=== PATIENT | male | born 1950 | race Caucasian/White ===

== ENCOUNTER 2024-02-06 09:54 | Observation (INO) ==
--- NOTE | 2024-02-06 10:09 | Emergency Department Note ---
Impression & Plan Aortic dissection, Chest pain, Hypercalcemia, History of aortic dissection ED Provider Note NAME: TONI GR AGE: 73 SEX: M : 1950 ARRIVES VIA: Ambulance INFORMANT: Patient, ED PROVIDER(S): Doug La DO CHIEF COMPLAINT: Chest pain HPI: The patient is a 73-year-old male who presented to the emergency department by ambulance for an evaluation of chest pain. The patient was walking up a step when he felt a pulling sensation on the left side of his chest. He has a history of aortic dissection with aortic valve replacement. The patient does take Coumadin. He did not take his morning medications. He called 911 and was brought to our emergency department for further evaluation. The patient denies having any difficulty breathing. He did fly from [place] recently for a family reunion that was going on today. He is never been in our facility before but he does come from the [facility]. He denies having any lower extremity swelling or pain. He denies having any difficulty breathing. He states the pain is somewhat worsened with movement. ROS: See above HPI for pertinent positives & negatives. A total of 10 systems reviewed and were otherwise negative. PAST MEDICAL HISTORY: See Below PAST SURGICAL HISTORY: See Below FAMILY HISTORY: See Below SOCIAL HISTORY: See Below HOME MEDICATIONS: See Below ALLERGIES: See Below VITALS: See Below PHYSICAL EXAMINATION: GENERAL: Patient is awake alert in no acute distress patient is resting comfortably and showing no signs of anxiety EYES: The conjunctivae are clear. The pupils are round and reactive. EARS, NOSE, MOUTH AND THROAT: The nose is without any evidence of any deformity. Mucous membranes are moist. Tongue is midline. NECK: The neck is nontender and supple. RESPIRATORY: Normal respiratory effort is noted there is no evidence of wheezing rhonchi or rales CARDIOVASCULAR: Regular rate and rhythm was noted to auscultation. Metallic click was noted to auscultation. GASTROINTESTINAL: The abdomen is soft. Abdomen is nontender. MUSCULOSKELETAL/EXTREMITIES: There is no evidence of gross deformity full range of motion is noted in the hips and shoulders. SKIN: There is no obvious evidence of any rash. Pulses are symmetric in both wrist. NEUROLOGIC: Patient is awake alert and oriented x3. Gait was steady. MEDICAL DECISION MAKING: The patient is a 73-year-old male who presented to the emergency department for an evaluation of chest pain. The patient described a sensation almost like a tearing or pulling sensation in his anterior chest. He has a remote history of thoracic aortic aneurysm repair in 2013. The patient is currently visiting and normally lives in [place]. His family called 911 and the patient came to our facility by ambulance. The patient was bradycardic. He does not take a beta- raul according to his med reconciliation. He does take Coumadin because of a valve replacement surgery because of the aortic surgery. I discussed patient's laboratory and radiographic studies with him. He was found to have an elevation in his calcium. He was also found to have an aortic dissection although it is unclear if this is a chronic finding. I discussed the patient's condition with the ICU as well as the cardiothoracic group at . They feel that these findings may be more related to a chronic finding from the surgery. I discussed his case with the [facility] hospitalist group here as well as our cardiology group ICU and vascular. The patient was placed on nicardipine drip. Blood pressure responded well. Triage Nursing notes reviewed. Prior medical records reviewed Vital Signs: reviewed and remarkable for bradycardia and retention. Differential diagnosis: Cardiac ischemia, aortic dissection, pulmonary embolism, pneumothorax, pneumonia, pericarditis, myocarditis, esophageal rupture, GERD, cholecystitis, pancreatitis, musculoskeletal, as well as other pathologies. ER treatment provided: See below Diagnostics interpreted by me: ECG: EKG was obtained in the emergency department. My interpretation is sinus bradycardia 55 bpm. There is no ectopy. There is no acute ST segment abnormalities noted. No previous tracing available. Cardiac Monitoring: An order was placed for continuous cardiac monitoring. The monitor shows a rate of 48 bpm with sinus bradycardia. Laboratory studies: As stated above and show below. Imaging studies: See below. Radiographic imaging was reviewed by myself Consultation(s): I discussed this case with Dr. Moore who is on-call for the ICU at . I discussed this case with Dr. Llamas who is on-call for CT surgery at . I discussed this case with Dr Edouard who is on for vascular surgery at [facility] I discussed the case with Karen who is on-call for the [facility] hospitalist group. They will evaluate the patient in the emergency department. I discussed this case with Dr. Blank who is on-call for the ICU at [facility]. I discussed this case with Dr Waite who is on-call for the [facility] allergy group. ED COURSE: Procedures: none Critical Care: I have personally spent greater than 55 minutes of critical care time in the direct management of this patient. This includes bedside care, interpretation of diagnostic studies, and testing, discussion with consultants, patient, and family members, and other required patient management activities. This 55 minutes is in excess of all separately billable procedures. Past Med/Surg History Problem List (Updated 02/06/24 @ 13:43 by Marilyn Ugalde PA-C) Urinary retention Abnormal renal function H/O mechanical aortic valve replacement History of aortic dissection Bradycardia Hypertensive emergency HTN (hypertension) Hypercalcemia (Acute) Chest pain (Acute) Aortic valve replaced Aortic dissection (Acute) Surgical History History of repair of ACL History of total knee replacement Family History (Updated 02/06/24 @ 13:25 by Marilyn Ugalde PA-C) Other Hypertension Social History Smoking Status: Former smoker Hx Alcohol Use: Yes Alcohol Intake Frequency: 2-4 x/Month Hx Substance Use: Yes Non-Prescribed Medications: Marijuana Preferred Language: Swazi Beliefs That Will Affect Care: Spiritual Feels Safe at Home: Yes Allergies Allergies Allergy/AdvReac Type Severity Reaction Status Date / Time Unable to Assess Allergy Unverified 02/06/24 11:48 Home Meds Home Medications Medication Instructions Recorded Confirmed amlodipine 5 mg tablet 5 mg PO QAM 02/06/24 02/06/24 ascorbic acid (vitamin C) 500 mg 500 mg PO DAILY 02/06/24 02/06/24 tablet (Vitamin C) aspirin 81 mg tablet,delayed 81 mg PO QPM 02/06/24 02/06/24 release benazepril 20 mg tablet 20 mg PO QPM 02/06/24 02/06/24 cholecalciferol (vitamin D3) 25 25 mcg PO DAILY 02/06/24 02/06/24 mcg (1,000 unit) tablet (Vitamin D3) cyanocobalamin (vitamin B-12) 500 500 mcg PO QPM 02/06/24 02/06/24 mcg tablet (Vitamin B-12) lysine 1,000 mg tablet 1,000 mg PO DAILY 02/06/24 02/06/24 magnesium 250 mg tablet 125 mg PO QPM 02/06/24 02/06/24 pantothenic acid (vit B5) 500 mg 500 mg PO QPM 02/06/24 02/06/24 tablet triamterene 37.5 1 tab PO QAM 02/06/24 02/06/24 mg-hydrochlorothiazide 25 mg tablet warfarin 5 mg tablet 2.5 mg PO BID 02/06/24 02/06/24 Results & Data (ED) Vital Signs Vital Signs - 24 hr 02/06/24 10:04 02/06/24 10:10 02/06/24 10:15 Temperature 36.5 C Temperature Source Oral Pulse Rate 53 L 54 L 48 L Pulse Rate [Apical] Pulse Rate from SpO2 Sensor Pulse Rhythm Regular Respiratory Rate 16 18 20 Respiratory Effort / Characteristics Non-Labored Respiratory Depth Normal Blood Pressure 205/92 H 181/90 H Blood Pressure [Right Arm] Blood Pressure Mean 129 120 Blood Pressure Mean [Right Arm] Pulse Oximetry 96 96 95 Oxygen Delivery Method Room Air Room Air Sepsis Recent Fever Within 48 Hours No Sepsis New/Unexplained Change in Mental Status N/A Sepsis Action Taken by Nursing No Action Required 02/06/24 10:54 02/06/24 11:00 02/06/24 11:04 Temperature Temperature Source Pulse Rate 49 L 46 L Pulse Rate [Apical] Pulse Rate from SpO2 Sensor 48 L 44 L Pulse Rhythm Respiratory Rate 17 16 Respiratory Effort / Characteristics Respiratory Depth Blood Pressure 166/75 H 174/75 H Blood Pressure [Right Arm] Blood Pressure Mean 105 124 Blood Pressure Mean [Right Arm] Pulse Oximetry 97 96 Oxygen Delivery Method Sepsis Recent Fever Within 48 Hours Sepsis New/Unexplained Change in Mental Status Sepsis Action Taken by Nursing 02/06/24 11:16 02/06/24 11:33 02/06/24 11:35 Temperature Temperature Source Pulse Rate 48 L 57 L Pulse Rate [Apical] Pulse Rate from SpO2 Sensor Pulse Rhythm Respiratory Rate Respiratory Effort / Characteristics Respiratory Depth Blood Pressure 154/70 H 148/67 H Blood Pressure [Right Arm] Blood Pressure Mean 99 94 Blood Pressure Mean [Right Arm] Pulse Oximetry Oxygen Delivery Method Sepsis Recent Fever Within 48 Hours Sepsis New/Unexplained Change in Mental Status Sepsis Action Taken by Nursing 02/06/24 11:36 02/06/24 11:54 02/06/24 12:22 Temperature Temperature Source Pulse Rate 58 L Pulse Rate [Apical] 50 L Pulse Rate from SpO2 Sensor Pulse Rhythm Respiratory Rate 18 Respiratory Effort / Characteristics Respiratory Depth Blood Pressure 157/78 H Blood Pressure [Right Arm] 134/60 123/68 Blood Pressure Mean 104 Blood Pressure Mean [Right Arm] 84 86 Pulse Oximetry Oxygen Delivery Method Sepsis Recent Fever Within 48 Hours Sepsis New/Unexplained Change in Mental Status Sepsis Action Taken by Nursing 02/06/24 12:36 02/06/24 12:53 Temperature Temperature Source Pulse Rate 61 Pulse Rate [Apical] 48 L Pulse Rate from SpO2 Sensor Pulse Rhythm Respiratory Rate 20 18 Respiratory Effort / Characteristics Non-Labored Respiratory Depth Normal Blood Pressure 137/66 Blood Pressure [Right Arm] 172/80 H Blood Pressure Mean 89 Blood Pressure Mean [Right Arm] 110 Pulse Oximetry 97 Oxygen Delivery Method Room Air Sepsis Recent Fever Within 48 Hours Sepsis New/Unexplained Change in Mental Status Sepsis Action Taken by Long-Term Medications Current Medication List: was personally reviewed by me Laboratory Data Attestation: I reviewed the patient's lab results. 02/06/24 10:13 02/06/24 10:13 Lab Results 02/06/24 02/06/24 02/06/24 Range/Units 10:11 10:13 10:19 WBC 4.32 L (4.8-10.8) K/ul RBC 4.96 (4.70-6.10) M/uL Hgb 15.0 (14.0-18.0) g/dl POC Hgb 15.3 (14.0-18.0) g/dl Hct 45.3 (42.0-52.0) % POC Hct 45 (42-52) % MCV 91.3 (80.0-100.0) fL MCH 30.2 (25.0-34.0) pg MCHC 33.1 (32.0-36.0) g/dL RDW Std Deviation 48.1 H (36.4-46.3) fL RDW Coeff of Ernie 14.3 (11.5-14.5) % Plt Count 192 (130-400) K/uL MPV 10.1 (9.4-12.4) fL Immature Gran % (Auto) 0.2 % Neut % (Auto) 54.2 % Lymph % (Auto) 30.1 % [place] % (Auto) 11.8 % Eos % (Auto) 3.0 % Baso % (Auto) 0.7 % Neut # (Auto) 2.34 (1.40-6.50) K/uL Lymph # (Auto) 1.30 (1.20-3.40) K/uL [place] # (Auto) 0.51 (0.11-0.59) K/uL Eos # (Auto) 0.13 (0.00-0.50) K/uL Baso # (Auto) 0.03 (0.00-0.20) K/uL Immature Gran # (Auto) 0.01 (0.01-0.20) K/uL PT 29.1 H (9.0-12.0) Seconds INR 3.0 H (0.9-1.1) APTT 35 H (21-31) Seconds PTT Ratio 1.3 POC Sodium 141 (135-144) mmol/L Sodium 139 (136-145) mmol/L POC Potassium 3.8 (3.3-5.0) mmol/L Potassium 3.9 (3.5-5.1) mmol/L POC Chloride 103 (101-112) mmol/L Chloride 104 (98-107) mmol/L Carbon Dioxide 31 (21-32) mmol/L POC Total CO2 28 (24-31) mmol/L Anion Gap 4 (3-11) POC Anion Gap 14.0 L (16-25) mmol/L POC BUN 23 H (7-18) mg/dl BUN 23 (6-23) mg/dl Creatinine 1.42 H (0.6-1.4) mg/dl POC Creatinine 1.5 H (0.6-1.3) mg/dl Est Cr Clr Drug Dosing 50.1 ml/min Est GFR ( Amer) 56.8 ml/min Est GFR (Non-Af Amer) 49.0 ml/min BUN/Creatinine Ratio 16.2 (10-20) Glucose 98 (70-99(Fasting)) mg/dl POC Glucose (other) 95 (70-99) mg/dl Calcium 12.2 H* (8.6-10.3) mg/dl POC Ioniz Calcium Grant 1.51 H (1.12-1.32) mmol/l Total Bilirubin 0.9 (0.2-1.0) mg/dl AST 21 (13-39) U/L ALT 15 (7-52) U/L Alkaline Phosphatase 93 (34-104) U/L Troponin I High Sens 13.5 (0-20) pg/ml Total Protein 7.7 (6.0-8.3) gm/dl Albumin 4.6 (3.4-5.0) gm/dl Globulin 3.1 (2.5-4.0) gm/dl Albumin/Globulin Ratio 1.5 (0.9-2) Lipase 13 (11-82) U/L Urine Color Yellow Urine Appearance Clear (Clear) Urine pH 6.5 (4.5-7.5) Ur Specific [place] 1.006 (1.000-1.030) Urine Protein Negative (Negative) Urine Glucose (UA) Negative (Negative) Urine Ketones Negative (Negative) Urine Blood Negative (Negative) Urine Nitrite Negative (Negative) Urine Bilirubin Negative (Negative) Urine Urobilinogen Negative (Negative) Ur Leukocyte Esterase Negative (Negative) 02/06/24 Range/Units 12:50 WBC (4.8-10.8) K/ul RBC (4.70-6.10) M/uL Hgb (14.0-18.0) g/dl POC Hgb (14.0-18.0) g/dl Hct (42.0-52.0) % POC Hct (42-52) % MCV (80.0-100.0) fL MCH (25.0-34.0) pg MCHC (32.0-36.0) g/dL RDW Std Deviation (36.4-46.3) fL RDW Coeff of Ernie (11.5-14.5) % Plt Count (130-400) K/uL MPV (9.4-12.4) fL Immature Gran % (Auto) % Neut % (Auto) % Lymph % (Auto) % [place] % (Auto) % Eos % (Auto) % Baso % (Auto) % Neut # (Auto) (1.40-6.50) K/uL Lymph # (Auto) (1.20-3.40) K/uL [place] # (Auto) (0.11-0.59) K/uL Eos # (Auto) (0.00-0.50) K/uL Baso # (Auto) (0.00-0.20) K/uL Immature Gran # (Auto) (0.01-0.20) K/uL PT (9.0-12.0) Seconds INR (0.9-1.1) APTT (21-31) Seconds PTT Ratio POC Sodium (135-144) mmol/L Sodium (136-145) mmol/L POC Potassium (3.3-5.0) mmol/L Potassium (3.5-5.1) mmol/L POC Chloride (101-112) mmol/L Chloride (98-107) mmol/L Carbon Dioxide (21-32) mmol/L POC Total CO2 (24-31) mmol/L Anion Gap (3-11) POC Anion Gap (16-25) mmol/L POC BUN (7-18) mg/dl BUN (6-23) mg/dl Creatinine (0.6-1.4) mg/dl POC Creatinine (0.6-1.3) mg/dl Est Cr Clr Drug Dosing ml/min Est GFR ( Amer) ml/min Est GFR (Non-Af Amer) ml/min BUN/Creatinine Ratio (10-20) Glucose (70-99(Fasting)) mg/dl POC Glucose (other) (70-99) mg/dl Calcium (8.6-10.3) mg/dl POC Ioniz Calcium Grant (1.12-1.32) mmol/l Total Bilirubin (0.2-1.0) mg/dl AST (13-39) U/L ALT (7-52) U/L Alkaline Phosphatase (34-104) U/L Troponin I High Sens 12.3 (0-20) pg/ml Total Protein (6.0-8.3) gm/dl Albumin (3.4-5.0) gm/dl Globulin (2.5-4.0) gm/dl Albumin/Globulin Ratio (0.9-2) Lipase (11-82) U/L Urine Color Urine Appearance (Clear) Urine pH (4.5-7.5) Ur Specific [place] (1.000-1.030) Urine Protein (Negative) Urine Glucose (UA) (Negative) Urine Ketones (Negative) Urine Blood (Negative) Urine Nitrite (Negative) Urine Bilirubin (Negative) Urine Urobilinogen (Negative) Ur Leukocyte Esterase (Negative) Administered Medications Nicardipine HCl 25 mg/ Sodium (Chloride) 250 mls @ 25 mls/hr IV .Q10H SHANKAR; Protocol Stop: 03/07/24 11:14 Last Titration: 02/06/24 12:53 Dose: 2.5 mg/hr, 25 mls/hr Documented By: MMFederica Titration: 02/06/24 11:56 Dose: 2.5 mg/hr, 25 mls/hr Documented By: Admin: 02/06/24 11:16 Dose: 5 mg/hr, 50 mls/hr Documented By: MARIXA Co-signed By: SHB Discontinued Medications Ioversol (Optiray 320 125ml) 117 ml IV ONCE ONE Stop: 02/06/24 10:31 Last Admin: 02/06/24 10:30 Dose: 117 ml Documented By: TASHA Miscellaneous (Stat Iv Infusion Titration Per Protocol) 1 each N/A NOW STA Stop: 02/06/24 11:03 Last Admin: 02/06/24 13:20 Dose: Not Given Documented By: MARIXA Imaging Data Attestation: I personally reviewed and interpreted this imaging study as follows: My Impression: 1 view chest x-ray was obtained in the emergency department. My interpretation is no free air or definite infiltrate, final report below. CT of the chest abdomen pelvis was obtained. My interpretation is no free air or signs of bowel obstruction, there was signs of aortic dissection noted on the abdominal CT. Final reports are below. Radiologist's Impression: Abdomen/Pelvis CT 02/06/24 09:[address] WITH IV CONTRAST CT DOSE: HISTORY: Generalized abdominal pain. History of an aortic dissection. TECHNIQUE: Multiaxial CT images of the abdomen and pelvis were performed following the use of intravenous contrast. A dose lowering technique was utilized adhering to the principles of ALARA. COMPARISON STUDY: None. FINDINGS: There is an age-indeterminate intramural hematoma within the distal descending thoracic aorta. There is also an age-indeterminate dissection within the abdominal aorta which extends into the bilateral common iliac arteries and right external iliac artery. Both the true and false lumens are opacified. No significant stenosis or occlusion within the aorta or iliac arteries. The bilateral renal arteries and major mesenteric arteries appear patent. No retroperitoneal hematoma. The heart is mildly enlarged. The main portal vein is patent. The lung bases will be reported on the same day chest CTA. No pneumoperitoneum. No pneumatosis. No acute fractures. Partially visualized poststernotomy changes. There is a mild superior endplate compression fracture at L1. This is likely chronic. There are few small gallstones. No gallbladder wall thickening. The liver, spleen, and adrenal glands unremarkable. No hydronephrosis. There is a severely atrophic right kidney. There is a 6 mm hypodense lesion within the uncinate process of the pancreas on image 148. No retroperitoneal lymphadenopathy. No pelvic lymphadenopathy or pelvic free fluid. Mild bladder wall thickening is likely due to chronic outlet obstruction from the enlarged prostate gland. No bowel wall thickening or obstruction. Colonic diverticulosis. No evidence for acute diverticulitis. Moderate fecal retention. Normal appendix. IMPRESSION: 1. There is an intramural hematoma within the visualized ascending thoracic aorta and a dissection within the abdominal aorta and iliac arteries as described above. No significant stenosis, occlusion, or aortic rupture. These are technically age-indeterminate but likely chronic. 2. Severely atrophic right kidney. 3. No bowel wall thickening or obstruction. 4. Colonic diverticulosis. No evidence for acute diverticulitis. 5. Cholelithiasis. No gallbladder wall thickening. 6. A 6 mm hypodense lesion within the uncinate process of the pancreas. This favors a cystic neoplasm such as a side branch intraductal papillary mucinous neoplasm or serous cystadenoma. One year CT or MRI follow-up can be performed to ensure stability. 7. Additional findings as described above. ACT 112: Negative or not required by law. Electronically signed by: Eric Loja M.D. 02/06/2024 10:56 AM Chest X-Ray 02/06/24 09:58 XR chest 1V portable HISTORY: 73 years-old Male abd pain acute chest pain COMPARISON: None TECHNIQUE: AP view of the chest FINDINGS: Cardiac silhouette is enlarged. Median sternotomy with cardiac valvular prosthesis. Atherosclerosis of the aorta. Mild pulmonary vascular congestion. No pneumothorax, pleural effusion or airspace consolidation. The bones appear intact. IMPRESSION: Cardiomegaly with pulmonary vascular congestion. ACT 112: Negative or not required by law. The above report was generated using voice recognition software. It may contain grammatical, syntax or spelling errors. Electronically signed by: Ever Hobbs M.D. 02/06/2024 10:33 AM Chest CTA 02/06/24 10:07 CT angio chest dissec wo/w con HISTORY: 73 years-old Male hx of dissedtion, CP acute chest pain COMPARISON: CT abdomen and pelvis of same day TECHNIQUE: CTA chest was obtained with and without IV contrast. A dose lowering technique was used consistent with the principals of MARTIN. All measurements were obtained according to CT criteria. 3-D coronal and sagittal MIPS were obtained and submitted for review. FINDINGS: CTA: Cardiomegaly without pericardial effusion. Median sternotomy with prosthetic aortic valve. Extensive coronary artery calcifications. Postoperative changes of the ascending thoracic aorta with dilation of the anterior arch measuring up to 4.3 cm transversely. No acute intrathoracic dissection. Chronic- appearing intradural hematoma of the distal descending thoracic aorta. No pulmonary emboli identified. Partially imaged abdominal aortic dissection with dissection flap extending into the left renal artery. There is decreased flow within the posterior lumen. There is fenestration of the dissection flap on image [address] CHEST: Unremarkable thyroid. No lymphadenopathy. No pneumothorax, pleural effusion or overt pulmonary edema. Mild biapical pleural-parenchymal scarring. Mild left basilar atelectasis. Lobular 3.5 x 2.4 cm mass in the left lower lobe on image 111 series 7 demonstrates coarse central calcifications. No additional pulmonary lesions identified. Central airways are patent. No acute fracture. Atrophic right kidney with decreased perfusion and narrowing of the mid right renal artery. No acute fracture. IMPRESSION: 1. Cardiomegaly with prior median sternotomy, prosthetic aortic valve with postoperative changes of the ascending thoracic aorta. 2. No acute thoracic aortic dissection. 3. Chronic-appearing intramural hematoma of the descending thoracic aorta with likely chronic abdominal aortic dissection, partially imaged. 4. 3.5 cm partially calcified mass of the left lower lobe. Follow-up with pulmonology recommended. This may be amenable to bronchoscopic tissue sampling. ACT 112: Positive. There are findings on this exam that require communication between the performing entity and the patient following Patient Test Result Information Act ([place] Act 112) guidelines. The above report was generated using voice recognition software. It may contain grammatical, syntax or spelling errors. Electronically signed by: Ever Hobbs M.D. 02/06/2024 11:41 AM Discharge Plan Visit Data Chief Complaint: Abdominal Pain Stated Complaint: ILLNESS ED Provider: Doug La Discharge Problem: Aortic dissection, Chest pain, Hypercalcemia, History of aortic dissection Patient Disposition: Being Evaluated by Hospitalist Forms Stand Alone Forms: My [facility] Prescriptions Prescriptions: No Action pantothenic acid (vit B5) 500 mg Tablet 500 mg PO QPM lysine [L-Lysine] 1,000 mg Tablet 1,000 mg PO DAILY amlodipine 5 mg tablet 5 mg PO QAM aspirin 81 mg Tablet,Delayed Release (Dr/Ec) 81 mg PO QPM cyanocobalamin (vitamin B-12) [Vitamin B-12] 500 mcg Tablet 500 mcg PO QPM ascorbic acid (vitamin C) [Vitamin C] 500 mg Tablet 500 mg PO DAILY warfarin 5 mg tablet 2.5 mg PO BID benazepril 20 mg tablet 20 mg PO QPM magnesium 250 mg Tablet 125 mg PO QPM cholecalciferol (vitamin D3) [Vitamin D3] 25 mcg (1,000 unit) Tablet 25 mcg PO DAILY triamterene-hydrochlorothiazid 37.5-25 mg Tablet 1 tab PO QAM Referrals Referrals: PCP,NO [Physician] - Discharge Problem: Aortic dissection Qualifiers: Aortic location: thoracoabdominal aorta Qualified Code(s): I71.03 - Dissection of thoracoabdominal aorta Chest pain Qualifiers: Chest pain type: unspecified Qualified Code(s): R07.9 - Chest pain, unspecified
[2024-02-06] MEDS: OPTIRAY 320 125ml IV ONE (10:30)
[2024-02-06 10:32] LABS: Appearance Urine Clear (Clear); Bilirubin Urine Negative (Negative); Blood Urine Negative (Negative); Color Urine Yellow; Glucose Urine UA Negative (Negative); Ketones Urine Negative (Negative); Leukocyte Esterase Urine Negative (Negative); Nitrite Urine Negative (Negative); Protein Urine Negative (Negative); Specific Gravity Urine 1.006 (1.000-1.030); Urobilinogen Urine Negative (Negative); pH Urine 6.5 (4.5-7.5)
[2024-02-06 10:32] LABS: iSTAT Creatinine 1.5 mg/dl (0.6-1.3); iSTAT Hemoglobin 15.3 g/dl (14.0-18.0); iSTAT Ionized Calcium 1.51 mmol/l (1.12-1.32); iSTAT Potassium 3.8 mmol/L (3.3-5.0)
--- NOTE | 2024-02-06 10:34 | XRay Report ---
XR chest 1V portable HISTORY: 73 years-old Male abd pain acute chest pain COMPARISON: None TECHNIQUE: AP view of the chest FINDINGS: Cardiac silhouette is enlarged. Median sternotomy with cardiac valvular prosthesis. Atherosclerosis o f the aorta. Mild pulmonary vascular congestion. No pneumothorax, pleural effusion or airspace consol idation. The bones appear intact. IMPRESSION: Cardiomegaly with pulmonary vascular congestion. ACT 112: Negative or not required by law. The above report was generated using voice recognition software. It may contain grammatical, syntax o r spelling errors. Electronically signed by: Ever Hobbs M.D. 02/06/2024 10:33 AM
[2024-02-06 10:39] LABS: Basophils # (auto) 0.03 K/uL (0.00-0.20); Basophils % (auto) 0.7 %; Eosinophils # (auto) 0.13 K/uL (0.00-0.50); Hematocrit (blood only) 45.3 % (42.0-52.0); Immature Granulocytes # (auto) 0.01 K/uL (0.01-0.20); Immature Granulocytes % (auto) 0.2 %; Lymphocytes % (auto) 30.1 %; Mean Corpuscular Hemoglobin 30.2 pg (25.0-34.0); Mean Corpuscular Hgb Conc 33.1 g/dL (32.0-36.0); Mean Corpuscular Volume 91.3 fL (80.0-100.0); Mean Platelet Volume 10.1 fL (9.4-12.4); Monocytes # (auto) 0.51 K/uL (0.11-0.59); Monocytes % (auto) 11.8 %; Neutrophils # (auto) 2.34 K/uL (1.40-6.50); Neutrophils % (auto) 54.2 %; Platelet Count 192 K/uL (130-400); RDW Coefficient of Variation 14.3 % (11.5-14.5); RDW Standard Deviation 48.1 fL (36.4-46.3); Red Blood Count 4.96 M/uL (4.70-6.10); White Blood Count 4.32 K/ul (4.8-10.8)
--- NOTE | 2024-02-06 10:58 | CT Scan Report ---
ABDOMEN AND PELVIS CT WITH IV CONTRAST CT DOSE: HISTORY: Generalized abdominal pain. History of an aortic dissection. TECHNIQUE: Multiaxial CT images of the abdomen and pelvis were performed following the use of intrave nous contrast. A dose lowering technique was utilized adhering to the principles of ALARA. COMPARISON STUDY: None. FINDINGS: There is an age-indeterminate intramural hematoma within the distal descending thoracic aor ta. There is also an age-indeterminate dissection within the abdominal aorta which extends into the b ilateral common iliac arteries and right external iliac artery. Both the true and false lumens are op acified. No significant stenosis or occlusion within the aorta or iliac arteries. The bilateral renal arteries and major mesenteric arteries appear patent. No retroperitoneal hematoma. The heart is mild ly enlarged. The main portal vein is patent. The lung bases will be reported on the same day chest CTA. No pneumoperitoneum. No pneumatosis. No ac [place] fractures. Partially visualized poststernotomy changes. There is a mild superior endplate jacqueline julius fracture at L1. This is likely chronic. There are few small gallstones. No gallbladder wall thic [place]. The liver, spleen, and adrenal glands unremarkable. No hydronephrosis. There is a severely at rophic right kidney. There is a 6 mm hypodense lesion within the uncinate process of the pancreas on image 148. No retroperitoneal lymphadenopathy. No pelvic lymphadenopathy or pelvic free fluid. Mild b ladder wall thickening is likely due to chronic outlet obstruction from the enlarged prostate gland. No bowel wall thickening or obstruction. Colonic diverticulosis. No evidence for acute diverticulitis . Moderate fecal retention. Normal appendix. IMPRESSION: 1. There is an intramural hematoma within the visualized ascending thoracic aorta and a dissection wi thin the abdominal aorta and iliac arteries as described above. No significant stenosis, occlusion, o r aortic rupture. These are technically age-indeterminate but likely chronic. 2. Severely atrophic right kidney. 3. No bowel wall thickening or obstruction. 4. Colonic diverticulosis. No evidence for acute diverticulitis. 5. Cholelithiasis. No gallbladder wall thickening. 6. A 6 mm hypodense lesion within the uncinate process of the pancreas. This favors a cystic neoplasm such as a side branch intraductal papillary mucinous neoplasm or serous cystadenoma. One year CT or MRI follow-up can be performed to ensure stability. 7. Additional findings as described above. ACT 112: Negative or not required by law. Electronically signed by: Eric Loja M.D. 02/06/2024 10:56 AM
[2024-02-06 11:15] LABS: Partial Thromboplastin Ratio 1.3; Partial Thromboplastin Time 35 Seconds (21-31); Prothrombin Time 29.1 Seconds (9.0-12.0)
[2024-02-06] MEDS: niCARdipine 25 MG in SODIUM CHLORIDE 0.9% 240 ML IV SCH (11:16)
[2024-02-06 11:19] LABS: Albumin Globulin Ratio 1.5 (0.9-2); Albumin Level 4.6 gm/dl (3.4-5.0); BUN Creatinine Ratio 16.2 (10-20); Bilirubin,Total 0.9 mg/dl (0.2-1.0); Calcium 12.2 mg/dl (8.6-10.3); Creatinine Clr Calc Pharmacy 50.1 ml/min; Est GFR (African American) 56.8 ml/min; Globulin 3.1 gm/dl (2.5-4.0); Potassium 3.9 mmol/L (3.5-5.1); Total Protein 7.7 gm/dl (6.0-8.3); Troponin I High Sensitivity 13.5 pg/ml (0-20)
--- NOTE | 2024-02-06 11:43 | CT Scan Report ---
CT angio chest dissec wo/w con HISTORY: 73 years-old Male hx of dissedtion, CP acute chest pain COMPARISON: CT abdomen and pelvis of same day TECHNIQUE: CTA chest was obtained with and without IV contrast. A dose lowering technique was used co nsistent with the principals claudia SALAZAR. All measurements were obtained according to CT criteria. 3-D c oronal and sagittal MIPS were obtained and submitted for review. FINDINGS: CTA: Cardiomegaly without pericardial effusion. Median sternotomy with prosthetic aortic valve. Exten sive coronary artery calcifications. Postoperative changes of the ascending thoracic aorta with dilat ion of the anterior arch measuring up to 4.3 cm transversely. No acute intrathoracic dissection. 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 No pulmonary emboli identi fied. Partially imaged abdominal aortic dissection with dissection flap extending into the left renal arter y. There is decreased flow within the posterior lumen. There is fenestration of the dissection flap o n image [address] CHEST: Unremarkable thyroid. No lymphadenopathy. No pneumothorax, pleural effusion or overt pulmon romel edema. Mild biapical pleural-parenchymal scarring. Mild left basilar atelectasis. Lobular 3.5 x 2 .4 cm mass in the left lower lobe on image 111 series 7 demonstrates coarse central calcifications. N o additional pulmonary lesions identified. Central airways are patent. No acute fracture. Atrophic ri ght kidney with decreased perfusion and narrowing of the mid right renal artery. No acute fracture. IMPRESSION: 1. Cardiomegaly with prior median sternotomy, prosthetic aortic valve with postoperative changes of t he ascending thoracic aorta. 2. No acute thoracic aortic dissection. 3. Chronic-appearing intramural hematoma of the descending thoracic aorta with likely chronic abdomin al aortic dissection, partially imaged. 4. 3.5 cm partially calcified mass of the left lower lobe. Follow-up with pulmonology recommended. Th is may be amenable to bronchoscopic tissue sampling. ACT 112: Positive. There are findings on this exam that require communication between the performing entity and the patient following Patient Test Result Information Act ([place] Act 112) guidelines. The above report was generated using voice recognition software. It may contain grammatical, syntax o r spelling errors. Electronically signed by: Ever Hobbs M.D. 02/06/2024 11:41 AM
--- NOTE | 2024-02-06 12:30 | History & Physical Report ---
Date of Service February 06, 2024 Assessment & Plan (1) Chest pain: (2) Hypertensive emergency: (3) Bradycardia: (4) History of aortic dissection: (5) H/O mechanical aortic valve replacement: Plan: Patient is 73 year old male with PMH aortic dissection, mechanical aortic valve, anticoagulated on warfarin with goal INR: 2.5-3.5, HTN, chronic urinary retention presented to ER with c/o chest pain today described as popping sensation. Today in ER noted to be hypertensive with BP 205/92 and pulse: 53. He was started on nicardipine drip with improvement of BPs and reported improvement of chest discomfort. Noted bradycardia in ER 40's-50's Troponin negative x 2 CTA chest: 1. Cardiomegaly with prior median sternotomy, prosthetic aortic valve with postoperative changes of the ascending thoracic aorta. 2. No acute thoracic aortic dissection. 3. Chronic-appearing intramural hematoma of the descending thoracic aorta with likely chronic abdominal aortic dissection, partially imaged. 4. 3.5 cm partially calcified mass of the left lower lobe. Follow-up with pulmonology recommended. This may be amenable to bronchoscopic tissue sampling. Chest pain may be from hypertensive emergency. R/O ACS, dissection. Appear chronic aortic dissection and hematoma on CT at this time. 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 Dr Waite Will hold home benazepril, triamterene-hydrochlorothiazide, amlodipine currently as on nicardipine drip INR: 3.0 Plan to continue warfarin CBC, BMP, INR in am (6) Abnormal renal function: Plan: Suspect underlying CKD given his history. Unknown baseline renal functions ?GREGORY CT abd/pelvis: Severely atrophic right kidney. BUN: 23, Cr: 1.4 (7) Hypercalcemia: Plan: Ca: 12 Repeat BMP now Calcitonin pending May need to consider nephrology consult (8) Urinary retention: Plan: Neurogenic bladder Self caths at home Chapman cath for now UA unremarkable (9) Abnormal CT scan: Plan: CT Abd/Pelvis:A 6 mm hypodense lesion within the uncinate process of the pancreas. This favors a cystic neoplasm such as a side branch intraductal papillary mucinous neoplasm or serous cystadenoma. Will need outpatient repeat imaging to monitor for stability CTA Chest: 3.5 cm partially calcified mass of the left lower lobe. Will require further follow up, likely with pulmonology DVT Prophylaxis On warfarin with therapeutic INR currently Full Code as per discussion with pt Follows with Dr Katiana Martines in [place], [place] for routine care Pt was seen and care coordinated with Dr Badillo. See addendum I spent a total of 75 minutes reviewing notes, outpatient records, labs, medication, coordinating, documenting and providing care for this patient excluding time spent in the performance of separately billed services. History of Present Illness Chief Complaint: Chest pain Primary Care Provider: AUDRA WILLAMS Patient is 73 year old male with PMH aortic dissection, mechanical aortic valve, anticoagulated on warfarin with goal INR: 2.5-3.5, HTN, chronic urinary retention presented to ER with c/o chest pain. Patient reports lives in [place] and flew to [place] and is here visiting family. Patient states this morning took a large step up and felt "pop" like sensation to left chest. States currently having some left chest pain described as dull but pain is not as strong as when he first arrived to the ER. States when takes deep breath left lateral chest feels tight sensation which he states feels like a pulled muscle. He does report a similar "popping sensation" in his chest in past that occurred approximately 8 hours prior to his aortic dissection in 07/13/2013. He denies any SOB, diaphoresis, dizziness, syncope, chest pain. Did not take his medications this morning. Patient reports has been told he has bradycardia in past. States in past had dizziness that he thought was secondary to dehydration and he since has been making sure to stay well hydrated and has not had dizziness symptoms. Reports home BP checks have been BP: 121/71, P 51 on 01/24/24 and on 01/26/24 BP: 118/74, P: 81. Reports some chronic ankle swelling and uses compression socks. Stung by yellow jackets yesterday. He reports that his throat felt a little tight and he took 6 tabs of OTC Benadryl yesterday with relief. Reports chronic constipation and uses Metamucil with relief. Aortic dissection and aortic valve replacement by Dr Zachery Lerma at [facility] in [facility]. States during that hospitalization had some kidney concerns but he is unsure of baseline kidney functions. States also has chronic numbness right buttock and chronic urinary retention and self-caths multiple times daily. Denies fever/chills, diaphoresis, N/V/D, TROY, syncope, vision changes, neck pain, orthopnea, palpitations, cough, sore throat, rhinorrhea, abdominal pain, paresthesias, weakness, rashes, hematuria, dysuria. Today in ER noted to be hypertensive with BP 205/92 and pulse: 53. He was started on nicardipine drip Allergies Allergy/AdvReac Type Severity Reaction Status Date / Time Unable to Assess Allergy Unverified 02/06/24 11:48 Home Medications Medication Instructions Recorded Confirmed Type amlodipine 5 mg tablet 5 mg PO QAM 02/06/24 02/06/24 History ascorbic acid (vitamin C) 500 mg 500 mg PO DAILY 02/06/24 02/06/24 History tablet (Vitamin C) aspirin 81 mg tablet,delayed 81 mg PO QPM 02/06/24 02/06/24 History release benazepril 20 mg tablet 20 mg PO QPM 02/06/24 02/06/24 History cholecalciferol (vitamin D3) 25 25 mcg PO DAILY 02/06/24 02/06/24 History mcg (1,000 unit) tablet (Vitamin D3) cyanocobalamin (vitamin B-12) 500 500 mcg PO QPM 02/06/24 02/06/24 History mcg tablet (Vitamin B-12) lysine 1,000 mg tablet 1,000 mg PO DAILY 02/06/24 02/06/24 History magnesium 250 mg tablet 125 mg PO QPM 02/06/24 02/06/24 History pantothenic acid (vit B5) 500 mg 500 mg PO QPM 02/06/24 02/06/24 History tablet triamterene 37.5 1 tab PO QAM 02/06/24 02/06/24 History mg-hydrochlorothiazide 25 mg tablet warfarin 5 mg tablet 2.5 mg PO BID 02/06/24 02/06/24 History Past Med/Surg History Problem List (Updated 02/06/24 @ 13:48 by Marilyn Ugalde PA-C) Abnormal CT scan Urinary retention Abnormal renal function H/O mechanical aortic valve replacement History of aortic dissection Bradycardia Hypertensive emergency HTN (hypertension) Hypercalcemia (Acute) Chest pain (Acute) Aortic valve replaced Aortic dissection (Acute) Surgical History History of repair of ACL History of total knee replacement Family History (Updated 02/06/24 @ 13:25 by Marilyn Ugalde PA-C) Other Hypertension Social History Smoking Status: Former smoker Hx Alcohol Use: Yes Alcohol Intake Frequency: 2-4 x/Month Hx Substance Use: Yes Non-Prescribed Medications: Marijuana Preferred Language: Turkish Beliefs That Will Affect Care: Spiritual Feels Safe at Home: Yes Review of Systems Review of Systems: All systems reviewed & are unremarkable except as noted in HPI & below Physical Exam Physical Exam: PE per Dr Badillo Results & Data Results & Data Vital Signs (Past 12 Hours) Vital Signs Temp Pulse Pulse Resp BP BP Pulse Ox 02/06/24 12:22 50 L 123/68 02/06/24 11:54 134/60 02/06/24 11:36 58 L 18 157/78 H 02/06/24 11:35 57 L 02/06/24 11:33 148/67 H 02/06/24 11:16 48 L 154/70 H 02/06/24 11:04 174/75 H 02/06/24 11:00 46 L 16 166/75 H 96 02/06/24 10:54 49 L 17 97 02/06/24 10:15 48 L 20 181/90 H 95 02/06/24 10:10 54 L 18 96 02/06/24 10:04 36.5 C 53 L 16 205/92 H 96 O2 Del Method 02/06/24 12:22 02/06/24 11:54 02/06/24 11:36 02/06/24 11:35 02/06/24 11:33 02/06/24 11:16 02/06/24 11:04 02/06/24 11:00 02/06/24 10:54 02/06/24 10:15 02/06/24 10:10 Room Air 02/06/24 10:04 Room Air Laboratory Results Short CBC 02/06/24 Range/Units 10:13 WBC 4.32 L (4.8-10.8) K/ul Hgb 15.0 (14.0-18.0) g/dl Hct 45.3 (42.0-52.0) % Plt Count 192 (130-400) K/uL BMP 02/06/24 10:13 Sodium 139 Potassium 3.9 Chloride 104 Carbon Dioxide 31 BUN 23 Creatinine 1.42 H Glucose 98 Calcium 12.2 H* Liver Function 02/06/24 Range/Units 10:13 Total Bilirubin 0.9 (0.2-1.0) mg/dl AST 21 (13-39) U/L ALT 15 (7-52) U/L Alkaline Phosphatase 93 (34-104) U/L Albumin 4.6 (3.4-5.0) gm/dl Urine 02/06/24 Range/Units 10:11 Urine Color Yellow Urine Appearance Clear (Clear) Urine pH 6.5 (4.5-7.5) Ur Specific [place] 1.006 (1.000-1.030) Urine Protein Negative (Negative) Urine Glucose (UA) Negative (Negative) Diagnostic Findings Abdomen/Pelvis CT 02/06/24 09:[address] WITH IV CONTRAST CT DOSE: HISTORY: Generalized abdominal pain. History of an aortic dissection. TECHNIQUE: Multiaxial CT images of the abdomen and pelvis were performed following the use of intravenous contrast. A dose lowering technique was utilized adhering to the principles of ALARA. COMPARISON STUDY: None. FINDINGS: There is an age-indeterminate intramural hematoma within the distal descending thoracic aorta. There is also an age-indeterminate dissection within the abdominal aorta which extends into the bilateral common iliac arteries and right external iliac artery. Both the true and false lumens are opacified. No significant stenosis or occlusion within the aorta or iliac arteries. The bilateral renal arteries and major mesenteric arteries appear patent. No retroperitoneal hematoma. The heart is mildly enlarged. The main portal vein is patent. The lung bases will be reported on the same day chest CTA. No pneumoperitoneum. No pneumatosis. No acute fractures. Partially visualized poststernotomy changes. There is a mild superior endplate compression fracture at L1. This is likely chronic. There are few small gallstones. No gallbladder wall thickening. The liver, spleen, and adrenal glands unremarkable. No hydronephrosis. There is a severely atrophic right kidney. There is a 6 mm hypodense lesion within the uncinate process of the pancreas on image 148. No retroperitoneal lymphadenopathy. No pelvic lymphadenopathy or pelvic free fluid. Mild bladder wall thickening is likely due to chronic outlet obstruction from the enlarged prostate gland. No bowel wall thickening or obstruction. Colonic diverticulosis. No evidence for acute diverticulitis. Moderate fecal retention. Normal appendix. IMPRESSION: 1. There is an intramural hematoma within the visualized ascending thoracic aorta and a dissection within the abdominal aorta and iliac arteries as described above. No significant stenosis, occlusion, or aortic rupture. These a re technically age-indeterminate but likely chronic. 2. Severely atrophic right kidney. 3. No bowel wall thickening or obstruction. 4. Colonic diverticulosis. No evidence for acute diverticulitis. 5. Cholelithiasis. No gallbladder wall thickening. 6. A 6 mm hypodense lesion within the uncinate process of the pancreas. This favors a cystic neoplasm such as a side branch intraductal papillary mucinous neoplasm or serous cystadenoma. One year CT or MRI follow-up can be performed to ensure stability. 7. Additional findings as described above. ACT 112: Negative or not required by law. Electronically signed by: Eric Loja M.D. 02/06/2024 10:56 AM Chest X-Ray 02/06/24 09:58 XR chest 1V portable HISTORY: 73 years-old Male abd pain acute chest pain COMPARISON: None TECHNIQUE: AP view of the chest FINDINGS: Cardiac silhouette is enlarged. Median sternotomy with cardiac valvular prosthesis. Atherosclerosis of the aorta. Mild pulmonary vascular congestion. No pneumothorax, pleural effusion or airspace consolidation. The bones appear intact. IMPRESSION: Cardiomegaly with pulmonary vascular congestion. ACT 112: Negative or not required by law. The above report was generated using voice recognition software. It may contain grammatical, syntax or spelling errors. Electronically signed by: Ever Hobbs M.D. 02/06/2024 10:33 AM Chest CTA 02/06/24 10:07 CT angio chest dissec wo/w con HISTORY: 73 years-old Male hx of dissedtion, CP acute chest pain COMPARISON: CT abdomen and pelvis of same day TECHNIQUE: CTA chest was obtained with and without IV contrast. A dose lowering technique was used consistent with the principals of MARTIN. All measurements were obtained according to CT criteria. 3-D coronal and sagittal MIPS were obtained and submitted for review. FINDINGS: CTA: Cardiomegaly without pericardial effusion. Median sternotomy with prosthetic aortic valve. Extensive coronary artery calcifications. Postoperative changes of the ascending thoracic aorta with dilation of the anterior arch measuring up to 4.3 cm transversely. No acute intrathoracic dissection. Chronic- appearing intradural hematoma of the distal descending thoracic aorta. No pulmonary emboli identified. Partially imaged abdominal aortic dissection with dissection flap extending into the left renal artery. There is decreased flow within the posterior lumen. There is fenestration of the dissection flap on image [address] CHEST: Unremarkable thyroid. No lymphadenopathy. No pneumothorax, pleural effusion or overt pulmonary edema. Mild biapical pleural-parenchymal scarring. Mild left basilar atelectasis. Lobular 3.5 x 2.4 cm mass in the left lower lobe on image 111 series 7 demonstrates coarse central calcifications. No additional pulmonary lesions identified. Central airways are patent. No acute fracture. Atrophic right kidney with decreased perfusion and narrowing of the mid right renal artery. No acute fracture. IMPRESSION: 1. Cardiomegaly with prior median sternotomy, prosthetic aortic valve with postoperative changes of the ascending thoracic aorta. 2. No acute thoracic aortic dissection. 3. Chronic-appearing intramural hematoma of the descending thoracic aorta with likely chronic abdominal aortic dissection, partially imaged. 4. 3.5 cm partially calcified mass of the left lower lobe. Follow-up with pulmonology recommended. This may be amenable to bronchoscopic tissue sampling. ACT 112: Positive. There are findings on this exam that require communication between the performing entity and the patient following Patient Test Result Information Act ([place] Act 112) guidelines. The above report was generated using voice recognition software. It may contain grammatical, syntax or spelling errors. Electronically signed by: Ever Hobbs M.D. 02/06/2024 11:41 AM Supervising Physician Co-Signing Physician Notes I have seen and discussed the case with the collaborating advanced practitioner. I agree with the above H&P. I have reviewed and confirmed the patients medical history, the findings on physical examination, and the patients diagnosis and treatment plan with [employer] ALCAZAR and agree with the information documented. In short, Mr. Humphrey is a 73 year old male with history of aortic dissection s/p repair and mechanical valve repair in 2012 on coumadin and hypertension who is admitted to ICU for hypertensive emergency and chest pain. Patient imaging revealed chronic aortic dissection and stable hematoma. Case reviewed by Geri who declined transfer. Case reviewed by Dr. Edouard who confirms seemingly stable chronic changes. Patient with pressures in 200s, did not take medications this am. Reports dull left sided chest pressure, nonreproducible on exam. 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 Patient states pain set in this am after a misstep resulting in a "pop" not dissimilar to his dissection Patient also remarks being stung by multiple wasps/yellow jackets and ingesting 150mg benadryl yes Labs with hypercalcemia to 12, normal trop EKG with bradycardia 40-50s not on BB iso valve repair BP initially in 200s prompting nicardipine drip initiation ICU and cardiology consulted in ED given concern for deterioration with complex medical history GENERAL APPEARANCE: AxOx4, generally well-appearing M, no acute distress. HEENT: NC, AT. MMM. EOMI, clear conjunctiva, oropharynx clear. NECK: Supple without lymphadenopathy. No stiffness or restricted ROM. HEART: VIRGIE+, mechanical click present LUNGS: CTAB, moving air well. No crackles or wheezes are heard. ABDOMEN: Soft, nontender, nondistended with good bowel sounds heard. BACK: No CVAT, no obvious deformity. EXTREMITIES: Without cyanosis, clubbing or edema. NEUROLOGICAL: Grossly nonfocal. Alert and oriented, moving all 4 extremities. CN not formally tested but appear grossly intact. Observed to ambulate with normal gait. Skin: Warm and dry without any rash. #Hypertensive Emergency #Chest pain #Chronic aortic dissection with hematoma Declined transfer, started on nicardipine Admit to ICU Continue nicardipine Repeat troponin x 3 Hold home regimen, resume as appropriate #Sinus bradycardia, borderline 1st degree iso mechanical valve #Aortic valve replacement on chronic anticoagulation Continue warfarin Avoid av reji blocking agents Montior hemodynamics in ICU Cards consult #Neurogenic bladder CIC caths self x7 daily -Place [facility]man #Atrophic right kidney, likely CKD -Cr. 1.4, unknown baseline Trend BMP #Hypercalcemia Repeat level, encourage po if elevated calcitonin and nephro consult Doesnt appear dry on exam rest of plan as above I spent a total of 35 minutes coordinating, documenting, and providing care for this patient excluding time spent in the performance of separately billed services. All of the aforementioned completed outside of collaborating with the assigned advanced practitioner for a full treatment plan. I have reviewed the advanced practitioner's documentation, and I agree with, and take responsibility for the plan of care (1) Chest pain Chest pain type: unspecified Qualified Code(s): R07.9 - Chest pain, unspecified
[2024-02-06] MEDS: STAT IV Infusion **Titration per Protocol STA (13:20)
[2024-02-06 13:34] LABS: Troponin I High Sensitivity 12.3 pg/ml (0-20)
--- NOTE | 2024-02-06 14:41 | Critical Care Consultation ---
Date of Consultation February 06, 2024 Assessment & Plan (1) Abnormal CT scan: (2) Pulmonary mass: (3) Urinary retention: (4) Abnormal renal function: (5) Bradycardia: (6) Hypertensive emergency: (7) Hypercalcemia: (8) Chest pain: (9) Aortic valve replaced: (10) Aortic dissection: Plan Reason Critically Ill: 71-year-old male with past medical history: Aortic dissection, mechanical aortic valve on warfarin for anticoagulation presented to hospital with complaints of chest pain. Was found to be in hypertensive emergency. 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 He is unsure if it has increased in size He is originally from [place] and is planning to go back. Advised him to get in touch with consulting solution manager over there GI - -- 6 mm hypodense lesion in the anterior process of the pancreas Cystic neoplasm is a possibility RENAL/LYTES - -- GREGORY on CKD Follow-up urine lites Monitor BUNs/creatinine Avoid nephrotoxic medication --Hypercalcemia Calcium 12.2 with albumin 4.6 Follow-up PTH Give IV fluids - -- History of urinary retention Secondary to neurogenic bladder ENDO - -- ICU hypoglycemia protocol HEME - -- On warfarin Goal INR 2.5-3.5 for mechanical aortic valve ID - -- No clear signs of infection UA clean, chest x-ray as well as CT chest clear Comfortable --Prophylaxis VTE: Warfarin GI: None Lines: Peripheral Diet: Cardiac Plan: Monitor systolic blood pressure. Keep it less than equal to 120 although he does not have an acute dissection but I will still be preferred Continue with benazepril which will be substituted to enalapril 10 mg. Given the patient's bradycardia, patient which can affect the heart rate cannot be used for blood pressure. Options will be either increase the dose of amlodipine, increase the dose of enalapril or add diuretics/nitro For the lung mass patient is going to follow-up with pulmonology in [place] when he goes back. Follow-up PTH for hypercalcemia. Will give him 100 mL/h IV fluids for hypercalcemia. Follow-up TSH I have personally spent 50 minutes of critical care time in the direct management of this patient. This is a life/limb threatening event. This includes time spent evaluating patient, direct bedside care, chart review, placing orders, interpretation of diagnostic studies, discussion with consultants, patient, and family members, as well as other required patient management activities. This time is exclusive of all separately billable procedures, and teaching time and separate from and in addition to any other critical care service time. History of Present Illness Attending Physician: Mami Badillo MD History of Present Illness 71-year-old male presents to the hospital with complaints of chest pain Past medical history: Aortic dissection 2012, mechanical aortic valve on warfarin for anticoagulation Patient was found to be in hypertensive emergency in the ED for which nicardipine was started. Was sent to the ICU for further care At the time of examination in the ICU patient's was in the room. Patient's systolic blood pressure was in the 150s, heart rate in the low 50s. Saturating 97% on room air Patient was not in any distress. Denied any chest pain right now. He heard a popping sound when he was trying to lift something at home. This was similar feeling when he first had his aortic dissection He is compliant with his medication and took his amlodipine as well as diuretic today in the morning He usually takes benazepril at night. He is also taking warfarin 2.5 mg twice a day and is compliant with it. Denies any fever or chills Occasionally gets night sweats which she relates to self-catheterization and frequent UTI Denies any nausea vomiting No headache right now, no blurry vision Social history: Used to smoke socially cigarettes in the college days. Smokes marijuana on a regular basis Allergies Allergy/AdvReac Type Severity Reaction Status Date / Time Unable to Assess Allergy Unverified 02/06/24 11:48 Home Medications Medication Instructions Recorded Confirmed Type amlodipine 5 mg tablet 5 mg PO QAM 02/06/24 02/06/24 History ascorbic acid (vitamin C) 500 mg 500 mg PO DAILY 02/06/24 02/06/24 History tablet (Vitamin C) aspirin 81 mg tablet,delayed 81 mg PO QPM 02/06/24 02/06/24 History release benazepril 20 mg tablet 20 mg PO QPM 02/06/24 02/06/24 History cholecalciferol (vitamin D3) 25 25 mcg PO DAILY 02/06/24 02/06/24 History mcg (1,000 unit) tablet (Vitamin D3) cyanocobalamin (vitamin B-12) 500 500 mcg PO QPM 02/06/24 02/06/24 History mcg tablet (Vitamin B-12) lysine 1,000 mg tablet 1,000 mg PO DAILY 02/06/24 02/06/24 History magnesium 250 mg tablet 125 mg PO QPM 02/06/24 02/06/24 History pantothenic acid (vit B5) 500 mg 500 mg PO QPM 02/06/24 02/06/24 History tablet triamterene 37.5 1 tab PO QAM 02/06/24 02/06/24 History mg-hydrochlorothiazide 25 mg tablet warfarin 5 mg tablet 2.5 mg PO BID 02/06/24 02/06/24 History Patient History Surgical History History of repair of ACL History of total knee replacement Family History (Updated 02/06/24 @ 13:25 by Marilyn Ugalde PA-C) Other Hypertension Social History Smoking Status: Former smoker Hx Alcohol Use: Yes Alcohol Intake Frequency: 2-4 x/Month Hx Substance Use: Yes Non-Prescribed Medications: Marijuana Last Used Substance: Days (ago) Preferred Language: German Communication Ability: Effective Mechanical Systems Engineer Required: No Beliefs That Will Affect Care: None Current Living Situation: Spouse Other Information That Helps Us Care for You: No Feels Safe at Home: Yes Safety Concerns: Feels Safe At This Time Assistive Devices: Glasses and Walker Review of Systems 2 Review of Systems: All systems reviewed & are unremarkable except as noted in HPI & below Physical Exam 2 Physical Exam: Constitutional: No acute distress HEENT: EOMI, PERRLA Respiratory system: Good air entry bilaterally, no wheeze, rhonchi, no crackles CVS: S1-S2 positive, mechanical heart sounds appreciated Abdomen: Soft, nontender, nondistended, positive bowel sounds x4 Extremities: +2 pulses bilaterally radialis/ dorsalis pedis, no cyanosis, +2 pitting edema bilateral lower extremity Neuro: Awake alert oriented x3 Psych: Normal mood and affect G/U: Positive Payne Skin: no rashes, warm and dry Lymphatic: no cervical or axillary lymphadenopathy Results & Data Results & Data Vital Signs (Past 12 Hours) Vital Signs Temp Pulse Pulse Resp BP BP Pulse Ox 02/06/24 14:15 155/77 H 02/06/24 14:00 123/66 02/06/24 13:54 52 L 15 02/06/24 13:45 139/79 02/06/24 13:45 139/79 02/06/24 13:45 139/79 02/06/24 13:45 54 L 22 02/06/24 13:30 50 L 14 02/06/24 13:30 121/69 02/06/24 13:30 121/69 02/06/24 13:15 49 L 13 02/06/24 13:15 147/76 H 02/06/24 13:00 43 L 16 02/06/24 13:00 155/75 H 02/06/24 13:00 155/75 H 02/06/24 12:57 43 L 16 02/06/24 12:53 48 L 18 172/80 H 02/06/24 12:52 172/80 H 02/06/24 12:52 172/80 H 02/06/24 12:52 172/80 H 02/06/24 12:45 157/100 H 02/06/24 12:42 49 L 16 02/06/24 12:36 61 20 137/66 97 02/06/24 12:22 50 L 123/68 02/06/24 11:54 134/60 02/06/24 11:36 58 L 18 157/78 H 02/06/24 11:35 57 L 02/06/24 11:33 148/67 H 02/06/24 11:16 48 L 154/70 H 02/06/24 11:04 174/75 H 02/06/24 11:00 46 L 16 166/75 H 96 02/06/24 10:54 49 L 17 97 02/06/24 10:15 48 L 20 181/90 H 95 02/06/24 10:10 54 L 18 96 02/06/24 10:04 36.5 C 53 L 16 205/92 H 96 O2 Del Method 02/06/24 14:15 02/06/24 14:00 02/06/24 13:54 02/06/24 13:45 02/06/24 13:45 02/06/24 13:45 02/06/24 13:45 02/06/24 13:30 02/06/24 13:30 02/06/24 13:30 02/06/24 13:15 02/06/24 13:15 02/06/24 13:00 02/06/24 13:00 02/06/24 13:00 02/06/24 12:57 02/06/24 12:53 02/06/24 12:52 02/06/24 12:52 02/06/24 12:52 02/06/24 12:45 02/06/24 12:42 02/06/24 12:36 Room Air 02/06/24 12:22 02/06/24 11:54 02/06/24 11:36 02/06/24 11:35 02/06/24 11:33 02/06/24 11:16 02/06/24 11:04 02/06/24 11:00 02/06/24 10:54 02/06/24 10:15 02/06/24 10:10 Room Air 02/06/24 10:04 Room Air Laboratory Results 02/06/24 10:13 02/06/24 12:50 Coding Level of Care Code 54836 CRITICAL CARE 1ST 30-74M Diagnoses Abnormal CT scan R93.89 Pulmonary mass R91.8 Urinary retention R33.9 Abnormal renal function N28.9 Bradycardia R00.1 Hypertensive emergency I16.1 Hypercalcemia E83.52 Chest pain R07.9 Chest pain type: unspecified Aortic valve replaced Z95.2 Aortic dissection I71.03 Aortic location: thoracoabdominal aorta (8) Chest pain Chest pain type: unspecified Qualified Code(s): R07.9 - Chest pain, unspecified (10) Aortic dissection Aortic location: thoracoabdominal aorta Qualified Code(s): I71.03 - Dissection of thoracoabdominal aorta
[2024-02-06 14:54] LABS: Calcium 11.6 mg/dl (8.6-10.3); Creatinine Clr Calc Pharmacy 58.3 ml/min; Est GFR (African American) 68.2 ml/min; Est GFR (Non-African American) 58.9 ml/min; Potassium 3.7 mmol/L (3.5-5.1)
[2024-02-06 15:09] LABS: Thyroid Stimulating Hormone 0.592 uIu/ml (0.300-4.500)
[2024-02-06] MEDS: PLASMA-LYTE A 1,000 ML IV SCH (15:30)
[2024-02-06 15:34] LABS: Creatinine Urine Random 52.5 mg/dl; Protein Creatinine Ratio Urine 0.2 (0-0.2); Total Protein Urine Random 9.1 mg/dl (0-11.9); Urine Potassium 29.1 mmol/L
[2024-02-06] MEDS ORDERED: WARFARIN SOD 5 MG TAB PO SCH (16:00)
--- NOTE | 2024-02-06 17:05 | Cardiology Consultation ---
Date of Consultation February 06, 2024 Assessment & Plan (1) Hypertensive emergency: (2) History of aortic dissection: (3) H/O mechanical aortic valve replacement: Plan Patient with complex cardiac history (Aortic dissection and AVR) admitted with "tearing/popping" chest pain, reminiscent of prior aortic dissection in 2012. Chest CT completed and reviewed by radiologist who felt findings were consistent with prior/chronic dissection and not acute/new. [facility] declined the need for transfer. No comparison images available. Patient significantly hypertensive on arrival. Started on nicardipine gtt. Benazepril changed to enalapril at 10 mg Home amlodipine on hold with nicardipine gtt Triam/hctz continued BP trending downwards with nicardipine gtt. would transition back to amlodipine as tolerated. Echo with preserved EF, normal gradients of mechanical AVR. Evidence of chronic dissection noted. Cardiology records requested from his primary research electrician in [place]. Chest pain has mostly improved. HS troponin negative x2. No acute ischemic EKG changes. Patient will follow up with home research electrician and cold meat cook upon return to [place]. Further recommendations pending discussion and evaluation with Dr. Waite Case discussed with Dr. Waite I spent a total of 60 minutes on the date of service in preparation, delivery, and documentation of the care provided to this patient, excluding any time spent in the performance of separately billed services. Tosha Oneal PA-C Department of Cardiology, [facility] This chart was completed in part utilizing Speech Voice Recognition Software. Grammatical errors, random word insertions, pronoun errors, and incomplete sentences are an occasional consequence of this system due to software limitations, ambient noise, and hardware issues. Any formal questions or concerns about the content, text, or information contained within the body of this dictation should be directly addressed to the provider for clarification. Supervising Physician Co-Signing Physician Notes Attending physician attestation. I have personally performed a history and physical examination on the patient. I have reviewed the advance practitioner's documentation, and I agree with, and take responsibility for the plan of care. 73-year-old male with complex history noted above presented to the emergency department with chest discomfort. CTA of the chest with chronic findings noted. Echocardiogram demonstrating preserved LV systolic function, normal wall motion, and normal mechanical aortic valve function. ECG with sinus bradycar venice. No ischemic changes. Initially blood pressure markedly elevated however currently within normal range after nicardipine infusion. Nicardipine has since been discontinued. Recommend resume home medications. First 2 sets of high- sensitivity troponin are within normal limits. Will repeat x 1 set. Continue observation overnight. Cardiology will follow. I spent a total of 30 minutes on the date of service in preparation, delivery, and documentation of the care provided to this patient, excluding any time spent in the performance of separately billed services. Jasper Waite DO, [facility] History of Present Illness Reason for Consultation: CP; History of Aortic dissection Requesting Physician: Dr. Badillo Attending Physician: Dr. Waite History of Present Illness Patient is a 73 year old male from [place], here visiting family in [place]. This morning while out on the porch, drinking coffee, and smoking pot with his brother, he developed a sudden "pop"/tearing" sensation left side of his chest followed by a dull ache. No radiation of the discomfort. No associated symptoms of dizziness, palpitations, SOB, diaphoresis. Due to his history and similar symptoms of prior dissection, he came to the ER for evaluation. He has a complex history includin. Aortic dissection occurring Jul 13, 2013. He felt a similar "pop/tearing" 8 hours prior to his event. 2. Mechanical AVR on chronic coumadin 3. Hypertension 4. Chronic urinary retention for which he self caths 5. Sinus bradycardia 6. Pulm mass 7. CKD Upon arrival to the ER he was found to be significantly hypertensive. Started on nicardipine gtt. Chest CT completed demonstrating chronic appearing aortic dissection per report. Per notes, ER physician contacted [facility] - including ICU and CT surgery and they declined transfer as it was felt to be chronic issue and not acute disection. Patient reports he has been in usual state of health otherwise. His BP is controlled ta home. He monitors this closely. No recent SOB, chest pain with exertion. NO orthopnea, PND or edema. He has been compliant with all medications recently. At time of consult, BP trending downward. Remains on nicardipine gtt. Nursing staff attempting to obtain records. He still has mild dull chest ache, left sided. No radiation. Appears comfortable. No diaphoresis, SOB. No palpitations. Overall he reports feeling much improved from this morning. He was found to have a questionable pulm mass on CT scan as well. He reports this is known/chronic issue as well. Will follow up with his pulm team upon re turn to [place]. Allergies Allergy/AdvReac Type Severity Reaction Status Date / Time Unable to Assess Allergy Unverified 02/06/24 11:48 Home Medications Medication Instructions Recorded Confirmed Type amlodipine 5 mg tablet 5 mg PO QAM 02/06/24 02/06/24 History ascorbic acid (vitamin C) 500 mg 500 mg PO DAILY 02/06/24 02/06/24 History tablet (Vitamin C) aspirin 81 mg tablet,delayed 81 mg PO QPM 02/06/24 02/06/24 History release benazepril 20 mg tablet 20 mg PO QPM 02/06/24 02/06/24 History cholecalciferol (vitamin D3) 25 25 mcg PO DAILY 02/06/24 02/06/24 History mcg (1,000 unit) tablet (Vitamin D3) cyanocobalamin (vitamin B-12) 500 500 mcg PO QPM 02/06/24 02/06/24 History mcg tablet (Vitamin B-12) lysine 1,000 mg tablet 1,000 mg PO DAILY 02/06/24 02/06/24 History magnesium 250 mg tablet 125 mg PO QPM 02/06/24 02/06/24 History pantothenic acid (vit B5) 500 mg 500 mg PO QPM 02/06/24 02/06/24 History tablet triamterene 37.5 1 tab PO QAM 02/06/24 02/06/24 History mg-hydrochlorothiazide 25 mg tablet warfarin 5 mg tablet 2.5 mg PO BID 02/06/24 02/06/24 History Patient History Surgical History History of repair of ACL History of total knee replacement Family History (Updated 02/06/24 @ 13:25 by Marilyn Ugalde PA-C) Other Hypertension Social History Smoking Status: Former smoker Hx Alcohol Use: Yes Alcohol Intake Frequency: 2-4 x/Month Hx Substance Use: Yes Non-Prescribed Medications: Marijuana Last Used Substance: Days (ago) Preferred Language: Yoruba Communication Ability: Effective Tc Operator Required: No Beliefs That Will Affect Care: None Current Living Situation: Spouse Other Information That Helps Us Care for You: No Feels Safe at Home: Yes Safety Concerns: Feels Safe At This Time Assistive Devices: Glasses and Walker Review of Systems Review of Systems: All systems reviewed & are unremarkable except as noted in HPI & below Physical Exam Constitutional: well developed; no acute distress Neck: normal visual inspection Respiratory: normal respiratory effort Auscultation: lungs clear to auscultation bilaterally Cardiovascular: Rate/Rhythm: regular rate and + bradycardic Results & Data Vital Signs (Past 12 Hours) Vital Signs Temp Pulse Pulse Resp BP BP BP 02/06/24 16:02 144/83 H 02/06/24 16:00 67 19 02/06/24 16:00 46 L 02/06/24 15:48 85 19 02/06/24 15:42 74 19 02/06/24 15:31 155/93 H 02/06/24 15:31 155/93 H 02/06/24 15:12 73 15 02/06/24 15:01 185/87 H 02/06/24 15:01 185/87 H 02/06/24 15:00 77 18 02/06/24 14:52 119/91 02/06/24 14:51 79 3 L 02/06/24 14:34 36.6 C 53 L 21 159/99 H 02/06/24 14:15 155/77 H 02/06/24 14:00 123/66 02/06/24 13:54 52 L 15 02/06/24 13:45 139/79 02/06/24 13:45 139/79 02/06/24 13:45 139/79 02/06/24 13:45 54 L 22 02/06/24 13:30 50 L 14 02/06/24 13:30 121/69 02/06/24 13:30 121/69 02/06/24 13:15 49 L 13 02/06/24 13:15 147/76 H 02/06/24 13:00 43 L 16 02/06/24 13:00 155/75 H 02/06/24 13:00 155/75 H 02/06/24 12:57 43 L 16 02/06/24 12:53 48 L 18 172/80 H 02/06/24 12:52 172/80 H 02/06/24 12:52 172/80 H 02/06/24 12:52 172/80 H 02/06/24 12:45 157/100 H 02/06/24 12:42 49 L 16 02/06/24 12:36 61 20 137/66 02/06/24 12:22 50 L 123/68 02/06/24 11:54 134/60 02/06/24 11:36 58 L 18 157/78 H 02/06/24 11:35 57 L 02/06/24 11:33 148/67 H 02/06/24 11:16 48 L 154/70 H 02/06/24 11:04 174/75 H 02/06/24 11:00 46 L 16 166/75 H 02/06/24 10:54 49 L 17 02/06/24 10:15 48 L 20 181/90 H 02/06/24 10:10 54 L 18 02/06/24 10:04 36.5 C 53 L 16 205/92 H Pulse Ox O2 Del Method 02/06/24 16:02 02/06/24 16:00 02/06/24 16:00 02/06/24 15:48 94 02/06/24 15:42 97 02/06/24 15:31 02/06/24 15:31 02/06/24 15:12 97 02/06/24 15:01 02/06/24 15:01 02/06/24 15:00 02/06/24 14:52 02/06/24 14:51 02/06/24 14:34 96 Room Air 02/06/24 14:15 02/06/24 14:00 02/06/24 13:54 02/06/24 13:45 02/06/24 13:45 02/06/24 13:45 02/06/24 13:45 02/06/24 13:30 02/06/24 13:30 02/06/24 13:30 02/06/24 13:15 02/06/24 13:15 02/06/24 13:00 02/06/24 13:00 02/06/24 13:00 02/06/24 12:57 02/06/24 12:53 02/06/24 12:52 02/06/24 12:52 02/06/24 12:52 02/06/24 12:45 02/06/24 12:42 02/06/24 12:36 97 Room Air 02/06/24 12:22 02/06/24 11:54 02/06/24 11:36 02/06/24 11:35 02/06/24 11:33 02/06/24 11:16 02/06/24 11:04 02/06/24 11:00 96 02/06/24 10:54 97 02/06/24 10:15 95 02/06/24 10:10 96 Room Air 02/06/24 10:04 96 Room Air Laboratory Results Cardiac Enzymes 02/06/24 02/06/24 Range/Units 10:13 12:50 AST 21 (13-39) U/L Troponin I High Sens 13.5 12.3 (0-20) pg/ml Coagulation 02/06/24 Range/Units 10:13 PT 29.1 H (9.0-12.0) Seconds APTT 35 H (21-31) Seconds CBC 02/06/24 Range/Units 10:13 WBC 4.32 L (4.8-10.8) K/ul RBC 4.96 (4.70-6.10) M/uL Hgb 15.0 (14.0-18.0) g/dl Hct 45.3 (42.0-52.0) % Plt Count 192 (130-400) K/uL Neut # (Auto) 2.34 (1.40-6.50) K/uL Lymph # (Auto) 1.30 (1.20-3.40) K/uL [place] # (Auto) 0.51 (0.11-0.59) K/uL Eos # (Auto) 0.13 (0.00-0.50) K/uL Baso # (Auto) 0.03 (0.00-0.20) K/uL Comprehensive Metabolic Panel 02/06/24 02/06/24 Range/Units 10:13 12:50 Sodium 139 140 (136-145) mmol/L Potassium 3.9 3.7 (3.5-5.1) mmol/L Chloride 104 108 H (98-107) mmol/L Carbon Dioxide 31 24 (21-32) mmol/L BUN 23 22 (6-23) mg/dl Creatinine 1.42 H 1.22 (0.6-1.4) mg/dl Glucose 98 103 H (70-99(Fasting)) mg/dl Calcium 12.2 H* 11.6 H (8.6-10.3) mg/dl AST 21 (13-39) U/L ALT 15 (7-52) U/L Alkaline Phosphatase 93 (34-104) U/L Total Protein 7.7 (6.0-8.3) gm/dl Albumin 4.6 (3.4-5.0) gm/dl Intake and Output 02/06/24 02/06/24 02/06/24 06:59 14:59 22:59 Intake Total 78.750 / 453.750 375 / 453.750 Output Total 975 / 975 Balance -896.250 / -521.250 375 / -521.250 Intake: IV 78.750 / 78.750 niCARdipine 25 mg In Sodium 78.750 / 78.750 Chloride 0.9% 240 ml @ 0 MG/HR IV .Q0M [facility] Rx#:[id number] Oral 375 / 375 Output: Urine Amount (Catheter) 975 / 975 Payne/Indwelling 975 / 975 Other: Weight 73.2 kg Weight Measurement Method Built in [facility] Patient Weight 02/07/24 06:59 Weight 73.2 kg Diagnostic Findings Telemetry reviewed: Sinus bradycardia 50-60 bmp. No arrhythmias EKG reviewed from admission: Sinus bradycardia at 55 bpm LAD voltage criteria for LVH No prior for comparison Repeat EKG reviewed: Sinus bradycardia at 43 bmp LAD LVH No change from previous Echo report reviewed 02/06/24: LVEF 60-65% Mild concentric LVH Spetal motion is consistent with post op state Mechanical AVR present. Normal gradients for prosthetic valve Aortic root is normal in size. Intimal flap visualized in the abdominal aorta consistent with an aortic dissection Abdomen/Pelvis CT 02/06/24 09:58 IMPRESSION: 1. There is an intramural hematoma within the visualized ascending thoracic aorta and a dissection within the abdominal aorta and iliac arteries as described above. No significant stenosis, occlusion, or aortic rupture. These are technically age-indeterminate but likely chronic. 2. Severely atrophic right kidney. 3. No bowel wall thickening or obstruction. 4. Colonic diverticulosis. No evidence for acute diverticulitis. 5. Cholelithiasis. No gallbladder wall thickening. 6. A 6 mm hypodense lesion within the uncinate process of the pancreas. This favors a cystic neoplasm such as a side branch intraductal papillary mucinous neoplasm or serous cystadenoma. One year CT or MRI follow-up can be performed to ensure stability. 7. Additional findings as described above. Chest X-Ray 02/06/24 09:58 XR chest 1V portable HISTORY: 73 years-old Male abd pain acute chest pain COMPARISON: None TECHNIQUE: AP view of the chest FINDINGS: Cardiac silhouette is enlarged. Median sternotomy with cardiac valvular prosthesis. Atherosclerosis of the aorta. Mild pulmonary vascular congestion. No pneumothorax, pleural effusion or airspace consolidation. The bones appear intact. IMPRESSION: Cardiomegaly with pulmonary vascular congestion. Chest CTA 02/06/24 10:07 IMPRESSION: 1. Cardiomegaly with prior median sternotomy, prosthetic aortic valve with postoperative changes of the ascending thoracic aorta. 2. No acute thoracic aortic dissection. 3. Chronic-appearing intramural hematoma of the descending thoracic aorta with likely chronic abdominal aortic dissection, partially imaged. 4. 3.5 cm partially calcified mass of the left lower lobe. Follow-up with pulmonology recommended. This may be amenable to bronchoscopic tissue sampling. Medications Administered Current Inpatient Medications Aspirin (Aspirin 81 Mg Ectab) 81 mg PO QPM SHANKAR Stop: 03/07/24 20:59 Enalapril Maleate (Enalapril Maleate 10 Mg Tab) 10 mg PO QPM SHANKAR Stop: 03/07/24 20:59 Nicardipine HCl 25 mg/ Sodium (Chloride) 250 mls @ 0 mls/hr IV .Q0M SHANKAR; Protocol Stop: 03/07/24 11:14 Last Titration: 02/06/24 14:00 Dose: 0 mg/hr, 0 mls/hr Parenteral Electrolytes (Plasma-Lyte A Ph 7.4) 1,000 mls @ 100 mls/hr IV .Q10H SHANKAR Stop: 03/07/24 15:14 Miscellaneous (Icu Protocol For Hyperglycemia) 1 each N/A ACHS SHANKAR Stop: 02/08/24 16:29 Triamterene/Hydrochlorothiazide (Triamterene/Hctz 37.5/25mg Tab) 1 tab PO QAM SHANKAR Stop: 03/08/24 08:59 Warfarin Sodium (Warfarin Sod 2.5 Mg Tab) 2.5 mg PO BID SHANKAR Stop: 03/07/24 20:59
[2024-02-06] MEDS: ICU Protocol for HYPERglycemia SCH (17:24)
[2024-02-06] MEDS: ASPIRIN 81 MG ECTAB PO SCH (20:59)
[2024-02-06] MEDS: ENALAPRIL MALEATE 10 MG TAB PO SCH (20:59)
[2024-02-06] MEDS: WARFARIN SOD 2.5 MG TAB PO SCH (20:59)
--- NOTE | 2024-02-06 21:16 | Electrocardiogram Report ---
Test Reason : Blood Pressure : / mmHG Vent. Rate : 055 BPM Atrial Rate : 055 BPM P-R Int : 198 ms QRS Dur : 102 ms QT Int : 434 ms P-R-T Axes : 095 -49 080 degrees QTc Int : 415 ms Sinus bradycardia Left anterior fascicular block Minimal voltage criteria for LVH, may be normal variant ( Sanibel product ) Nonspecific ST and T wave abnormality Abnormal ECG No previous ECGs available Confirmed by Edward Aparicio ([id number]) on 02/06/2024 9:16:19 PM Referred By: REFERRED SELF Confirmed By:Edward Aparicio
--- NOTE | 2024-02-06 21:21 | Electrocardiogram Report ---
Test Reason : Blood Pressure : / mmHG Vent. Rate : 043 BPM Atrial Rate : 043 BPM P-R Int : 204 ms QRS Dur : 116 ms QT Int : 480 ms P-R-T Axes : 075 -52 060 degrees QTc Int : 405 ms Marked sinus bradycardia Left anterior fascicular block Left ventricular hypertrophy with QRS widening ( Sokolow-Granda , Vaughn product ) Abnormal ECG When compared with ECG of 06-FEB-2024 10:08, (unconfirmed) No significant change was found Confirmed by Edward Aparicio ([id number]) on 02/06/2024 9:20:30 PM Referred By: REFERRED SELF Confirmed By:Edward Aparicio
[2024-02-07 04:49] LABS: Basophils # (auto) 0.03 K/uL (0.00-0.20); Basophils % (auto) 0.6 %; Eosinophils # (auto) 0.16 K/uL (0.00-0.50); Hematocrit (blood only) 38.2 % (42.0-52.0); Hemoglobin 12.6 g/dl (14.0-18.0); Immature Granulocytes # (auto) 0.01 K/uL (0.01-0.20); Immature Granulocytes % (auto) 0.2 %; Lymphocytes # (auto) 1.55 K/uL (1.20-3.40); Lymphocytes % (auto) 29.5 %; Mean Corpuscular Hemoglobin 30.4 pg (25.0-34.0); Mean Corpuscular Volume 92.3 fL (80.0-100.0); Mean Platelet Volume 10.2 fL (9.4-12.4); Monocytes # (auto) 0.53 K/uL (0.11-0.59); Monocytes % (auto) 10.1 %; Neutrophils # (auto) 2.97 K/uL (1.40-6.50); Neutrophils % (auto) 56.6 %; Platelet Count 166 K/uL (130-400); RDW Coefficient of Variation 14.5 % (11.5-14.5); RDW Standard Deviation 48.7 fL (36.4-46.3); Red Blood Count 4.14 M/uL (4.70-6.10); White Blood Count 5.25 K/ul (4.8-10.8)
[2024-02-07 04:53] LABS: BUN Creatinine Ratio 19.2 (10-20); Calcium 9.8 mg/dl (8.6-10.3); Creatinine Clr Calc Pharmacy 55.3 ml/min; Est GFR (African American) 66.3 ml/min; Est GFR (Non-African American) 57.2 ml/min; Potassium 3.6 mmol/L (3.5-5.1)
[2024-02-07 05:00] LABS: INR 2.8 (0.9-1.1); Prothrombin Time 27.8 Seconds (9.0-12.0)
--- NOTE | 2024-02-07 07:42 | Critical Care Progress Note ---
Date of Service February 07, 2024 Assessment & Plan (1) Abnormal CT scan: (2) Pulmonary mass: (3) Urinary retention: (4) Abnormal renal function: (5) Bradycardia: (6) Hypertensive emergency: (7) Hypercalcemia: (8) Chest pain: (9) Aortic valve replaced: (10) Aortic dissection: Plan Reason Critically Ill: 71-year-old male with past medical history: Aortic dissection, mechanical aortic valve on warfarin for anticoagulation presented to hospital with complaints of chest pain. Was found to be in hypertensive emergency. 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 He is unsure if it has increased in size He is originally from [place] and is planning to go back. Advised him to get in touch with assembler leather goods over there GI - -- 6 mm hypodense lesion in the anterior process of the pancreas Cystic neoplasm is a possibility RENAL/LYTES - -- S/p GREGORY on CKD Follow-up urine lites Monitor BUNs/creatinine Avoid nephrotoxic medication --Hypercalcemia secondary to primary hyperparathyroidism Calcium 12.2 with albumin 4.6, calcium today 9.8 PTH 107 Give IV fluids - -- History of urinary retention Secondary to neurogenic bladder ENDO - -- ICU hypoglycemia protocol HEME - -- On warfarin Goal INR 2.5-3.5 for mechanical aortic valve ID - -- No clear signs of infection UA clean, chest x-ray as well as CT chest clear Comfortable --Prophylaxis VTE: Warfarin GI: None Lines: Peripheral Diet: Cardiac Plan: In/out: +303, urine output 2450 Monitor systolic blood pressure. INR today is 2.8 which is within the excepted range. Patient hemodynamically stable to be downgraded to medical floor Would recommend to follow-up with his assembler leather goods in [place] for the left lung mass as well as primary care doctor to address primary hyperparathyroidism Please note the above document was generated using voice recognition software. It may contain grammatical, syntax or spelling errors.Any formal questions or concerns about the content, text or information contained within the body of this dictation should be directly addressed to the provider for clarification. Admission and Anticipated Discharge Date Admission Date: February 06, 2024 Subjective Patient seen and examined at bedside. No acute distress, no adverse events overnight No chest pain, no shortness of breath Denied any headache. Fair appetite, no nausea or vomiting Has been diuresing well. Review of Systems 2 Review of Systems: All systems reviewed & are unremarkable except as noted in Subjective Physical Exam 2 Physical Exam: Constitutional: No acute distress HEENT: EOMI, PERRLA Respiratory system: Good air entry bilaterally, no wheeze, rhonchi, no crackles CVS: S1-S2 positive, mechanical heart sounds appreciated Abdomen: Soft, nontender, nondistended, positive bowel sounds x4 Extremities: +2 pulses bilaterally radialis/ dorsalis pedis, no cyanosis, +2 pitting edema bilateral lower extremity Neuro: Awake alert oriented x3 Psych: Normal mood and affect G/U: Positive Payne Skin: no rashes, warm and dry Lymphatic: no cervical or axillary lymphadenopathy Results & Data Results & Data Vital Signs (Past 12 Hours) Vital Signs Pulse Resp BP Pulse Ox 02/07/24 06:09 45 L 15 96 02/07/24 06:00 127/63 02/07/24 05:57 54 L 14 96 02/07/24 05:06 45 L 17 95 02/07/24 05:00 140/56 L 02/07/24 05:00 140/56 L 02/07/24 05:00 140/56 L 02/07/24 04:57 45 L 16 96 02/07/24 04:09 44 L 14 93 02/07/24 04:00 134/59 L 02/07/24 03:42 43 L 16 94 02/07/24 03:03 46 L 18 96 02/07/24 03:00 127/59 L 02/07/24 03:00 127/59 L 02/07/24 02:57 51 L 15 96 02/07/24 02:02 49 L 17 95 02/07/24 02:00 138/65 02/07/24 01:59 49 L 15 94 02/07/24 01:02 47 L 16 95 02/07/24 01:00 126/63 02/07/24 01:00 126/63 02/07/24 00:53 48 L 15 95 02/07/24 00:08 50 L 18 96 02/07/24 00:00 123/63 02/07/24 00:00 123/63 02/07/24 00:00 50 L 02/06/24 23:54 51 L 16 96 02/06/24 23:06 50 L 19 97 02/06/24 23:01 162/76 H 02/06/24 23:01 162/76 H 02/06/24 22:54 47 L 13 97 02/06/24 22:00 141/76 H 02/06/24 21:36 43 L 20 96 02/06/24 21:01 157/64 H 02/06/24 21:01 157/64 H 02/06/24 21:00 47 L 15 97 02/06/24 20:21 49 L 23 96 02/06/24 20:01 168/79 H 02/06/24 20:01 168/79 H 02/06/24 19:54 54 L 14 96 Laboratory Results 02/07/24 04:14 02/07/24 04:14 Coding Level of Care Code 55524 SUB INP/OBS CARE 2/35MIN Diagnoses Abnormal CT scan R93.89 Pulmonary mass R91.8 Urinary retention R33.9 Abnormal renal function N28.9 Bradycardia R00.1 Hypertensive emergency I16.1 Hypercalcemia E83.52 Chest pain R07.9 Chest pain type: unspecified Aortic valve replaced Z95.2 Aortic dissection I71.03 Aortic location: thoracoabdominal aorta (8) Chest pain Chest pain type: unspecified Qualified Code(s): R07.9 - Chest pain, unspecified (10) Aortic dissection Aortic location: thoracoabdominal aorta Qualified Code(s): I71.03 - Dissection of thoracoabdominal aorta
[2024-02-07] MEDS: POTASSIUM CHLORIDE CRTAB 20 MEQ TABCR PO STA (07:47)
[2024-02-07] MEDS: PSYLLIUM or GUAR GUM FIBER 4GM PACKET PO SCH (07:49)
[2024-02-07] MEDS: TRIAMTERENE/HCTZ 37.5/25MG TAB PO SCH (10:09)
--- NOTE | 2024-02-07 12:18 | Cardiology Progress Note ---
Date of Service February 07, 2024 Assessment & Plan (1) Hypertensive emergency: (2) History of aortic dissection: (3) H/O mechanical aortic valve replacement: Plan 02/06/24: Patient with complex cardiac history (Aortic dissection and AVR) admitted with "tearing/popping" chest pain, reminiscent of prior aortic dissection in 2012. Chest CT completed and reviewed by radiologist who felt findings were consistent with prior/chronic dissection and not acute/new. [facility] [place] declined the need for transfer. No comparison images available. Patient significantly hypertensive on arrival. Started on nicardipine gtt. Benazepril changed to enalapril at 10 mg Home amlodipine on hold with nicardipine gtt Triam/hctz continued BP trending downwards with nicardipine gtt. would transition back to amlodipine as tolerated. Echo with preserved EF, normal gradients of mechanical AVR. Evidence of chronic dissection noted. Cardiology records requested from his primary mineralogy teacher in [place]. Chest pain has mostly improved. HS troponin negative x2. No acute ischemic EKG changes. Patient will follow up with home mineralogy teacher and atm technician upon return to [place]. 02/07/24: CP resolved. HS troponin negative x3. Chest CT on admission demonstrated known/chronic aortic dissection without acute change per notes and radiology review. BP improved with nicardipine gtt. Now discontinued. resume home dose amlodipine 5 mg daily Patient will follow up with his Monotypist and Cattle [employer] in [place] upon returning home. Arrangements are being made to send records and images. Case discussed with Dr. Mckinney. I spent a total of 25 minutes on the date of service in preparation, delivery, and documentation of the care provided to this patient, excluding any time spent in the performance of separately billed services. Tosha Oneal PA-C Department of Cardiology, [facility] This chart was completed in part utilizing Speech Voice Recognition Software. Grammatical errors, random word insertions, pronoun errors, and incomplete sentences are an occasional consequence of this system due to software limitations, ambient noise, and hardware issues. Any formal questions or concerns about the content, text, or information contained within the body of this dictation should be directly addressed to the provider for clarification. Admission and Anticipated Discharge Date Admission Date: February 06, 2024 Supervising Physician Co-Signing Physician Notes Attending physician attestation. I have personally performed a history and physical examination on the patient. I have reviewed the advance practitioner's documentation, and I agree with, and take responsibility for the plan of care. 73-year-old male with complex history noted above presented to the emergency department with chest discomfort. CTA of the chest with chronic findings noted. Echocardiogram demonstrating preserved LV systolic function, normal wall motion, and normal mechanical aortic valve function. ECG with sinus bradycardia. No ischemic changes. Pressure control has improved,has been asymptomatic overnight. I spent a total of 10 minutes on the date of service in preparation, delivery, and documentation of the care provided to this patient, excluding any time spent in the performance of separately billed services. Subjective Patient feeling well this morning. No recurrent chest pain. Ambulating in hallways without symptoms. Anxious for discharge. BP trending down. No complaints ntoed. Review of Systems Review of Systems: All systems reviewed & are unremarkable except as noted in HPI & below Physical Exam Constitutional: well developed; no acute distress Neck: normal visual inspection Respiratory: normal respiratory effort Auscultation: lungs clear to auscultation bilaterally Cardiovascular: Rate/Rhythm: regular rate and + bradycardic Musculoskeletal: no cyanosis or clubbing, extremities motor strength 5/5 Skin: no rashes, warm and dry Results & Data Vital Signs (Past 12 Hours) Vital Signs Temp Pulse Resp BP Pulse Ox 02/07/24 08:48 53 L 17 96 02/07/24 08:33 57 L 27 H 94 02/07/24 08:15 58 L 23 96 02/07/24 08:11 37.0 C 02/07/24 08:03 51 L 22 95 02/07/24 08:00 129/60 02/07/24 08:00 49 L 02/07/24 07:48 50 L 20 97 02/07/24 07:45 52 L 13 98 02/07/24 07:30 57 L 21 93 02/07/24 07:18 56 L 20 95 02/07/24 07:03 44 L 17 96 02/07/24 07:02 142/63 H 02/07/24 06:30 42 L 14 96 02/07/24 06:15 49 L 15 96 02/07/24 06:09 45 L 15 96 02/07/24 06:00 127/63 02/07/24 05:57 54 L 14 96 02/07/24 05:06 45 L 17 95 02/07/24 05:00 140/56 L 02/07/24 05:00 140/56 L 02/07/24 05:00 140/56 L 02/07/24 04:57 45 L 16 96 02/07/24 04:09 44 L 14 93 02/07/24 04:00 134/59 L 02/07/24 03:42 43 L 16 94 02/07/24 03:03 46 L 18 96 02/07/24 03:00 127/59 L 02/07/24 03:00 127/59 L 02/07/24 02:57 51 L 15 96 02/07/24 02:02 49 L 17 95 02/07/24 02:00 138/65 02/07/24 01:59 49 L 15 94 02/07/24 01:02 47 L 16 95 02/07/24 01:00 126/63 02/07/24 01:00 126/63 02/07/24 00:53 48 L 15 95 Laboratory Results Cardiac Enzymes 02/06/24 02/06/24 Range/Units 12:50 18:42 Troponin I High Sens 12.3 13.6 (0-20) pg/ml Coagulation 02/07/24 Range/Units 04:14 PT 27.8 H (9.0-12.0) Seconds CBC 02/07/24 Range/Units 04:14 WBC 5.25 (4.8-10.8) K/ul RBC 4.14 L (4.70-6.10) M/uL Hgb 12.6 L (14.0-18.0) g/dl Hct 38.2 L (42.0-52.0) % Plt Count 166 (130-400) K/uL Neut # (Auto) 2.97 (1.40-6.50) K/uL Lymph # (Auto) 1.55 (1.20-3.40) K/uL Ware # (Auto) 0.53 (0.11-0.59) K/uL Eos # (Auto) 0.16 (0.00-0.50) K/uL Baso # (Auto) 0.03 (0.00-0.20) K/uL Comprehensive Metabolic Panel 02/06/24 02/07/24 Range/Units 12:50 04:14 Sodium 140 140 (136-145) mmol/L Potassium 3.7 3.6 (3.5-5.1) mmol/L Chloride 108 H 107 (98-107) mmol/L Carbon Dioxide 24 28 (21-32) mmol/L BUN 22 24 H (6-23) mg/dl Creatinine 1.22 1.25 (0.6-1.4) mg/dl Glucose 103 H 88 (70-99(Fasting)) mg/dl Calcium 11.6 H 9.8 (8.6-10.3) mg/dl Intake and Output 02/06/24 02/07/24 02/07/24 22:59 06:59 14:59 Intake Total 1025 / 2503.750 1400 / 2503.750 250 / 250 Output Total 425 / 2350 950 / 2350 100 / 100 Balance 600 / 153.750 450 / 153.750 150 / 150 Intake: IV 0 / 6569.199 1700 / 1078.750 Plasma-Lyte A 1,000 ml @ 100 1000 / 1000 mls/hr IV .Q10H SHANKAR Rx#: [id number] niCARdipine 25 mg In Sodium 0 / 78.750 Chloride 0.9% 240 ml @ 0 MG/HR IV .Q0M SHANKAR Rx#:[id number] Oral 1025 / 1425 400 / 1425 250 / 250 Output: Urine Amount (Catheter) 425 / 2350 950 / 2350 100 / 100 Payne/Indwelling 425 / 2350 950 / 2350 100 / 100 Other: Weight 73.4 kg Weight Measurement Method Built in [facility] Diagnostic Findings Telemetry reviewed: Sinus bradycardia in the 50-60's. No arrhythmias Echo report reviewed 02/06/24: LVEF 60-65% Mild concentric LVH Septal motion is consistent with post op state Mechanical AVR present. Normal gradients for prosthetic valve Aortic root is normal in size. Intimal flap visualized in the abdominal aorta consistent with an aortic dissection Medications Administered Current Inpatient Medications Amlodipine Besylate (Amlodipine Besylate 5 Mg Tab) 5 mg PO QAM SHANKAR Stop: 03/08/24 11:44 Aspirin (Aspirin 81 Mg Ectab) 81 mg PO QPM SHANKAR Stop: 03/07/24 20:59 Last Admin: 02/06/24 20:59 Dose: 81 mg Enalapril Maleate (Enalapril Maleate 10 Mg Tab) 10 mg PO QPM SHANKAR Stop: 03/07/24 20:59 Last Admin: 02/06/24 20:59 Dose: 10 mg Parenteral Electrolytes (Plasma-Lyte A Ph 7.4) 1,000 mls @ 100 mls/hr IV .Q10H SHANKAR Stop: 03/07/24 15:14 Last Admin: 02/07/24 01:43 Dose: 100 mls/hr Miscellaneous (Icu Protocol For Hyperglycemia) 1 each N/A ACHS SHANKAR Stop: 02/08/24 16:29 Last Admin: 02/07/24 07:30 Dose: Not Given Psyllium Hydrophilic Mucilloid (Psyllium Or Guar Gum Fiber 4gm Packet) 4 gm PO QAM SHANKAR Stop: 03/08/24 08:59 Last Admin: 02/07/24 07:49 Dose: 4 gm Triamterene/Hydrochlorothiazide (Triamterene/Hctz 37.5/25mg Tab) 1 tab PO QAM SHANKAR Stop: 03/08/24 08:59 Last Admin: 02/07/24 10:09 Dose: 1 tab Warfarin Sodium (Warfarin Sod 2.5 Mg Tab) 2.5 mg PO BID SHANKAR Stop: 03/07/24 20:59 Last Admin: 02/07/24 10:08 Dose: 2.5 mg
[2024-02-07 12:27] LABS: Hematocrit (blood only) 40.5 % (42.0-52.0); Hemoglobin 13.3 g/dl (14.0-18.0)
[2024-02-07] MEDS: amLODIPine BESYLATE 5 MG TAB PO SCH (12:42)
--- NOTE | 2024-02-07 14:04 | Discharge Summary ---
Discharge Summary Date of Service February 07, 2024 Principal Dx & Hospital Course #1 = Principal Diagnosis (1) Chest pain: (2) Hypertensive emergency: (3) Bradycardia: (4) History of aortic dissection: (5) H/O mechanical aortic valve replacement: (6) Abnormal renal function: (7) Hypercalcemia: (8) Urinary retention: (9) Abnormal CT scan: Plan Patient is 73 year old male with PMH aortic dissection, mechanical aortic valve, anticoagulated on warfarin with goal INR: 2.5-3.5, HTN, chronic urinary retention who presented to the ER with chest pain described as a "popping sensation." Pt stated it was similar to how he felt with his previous aortic dissection. Chest pain: Hypertensive emergency: Bradycardia: History of aortic dissection: H/O mechanical aortic valve replacement: On admission in the ER, noted to be hypertensive with BP 205/92 and pulse: 53. He was started on a nicardipine drip with improvement of BP and reported improvement of chest discomfort. Noted bradycardia in ER 40's-50's Troponin negative x 3 CTA chest: 1. Cardiomegaly with prior median sternotomy, prosthetic aortic valve with postoperative changes of the ascending thoracic aorta. 2. No acute thoracic aortic dissection. 3. Chronic-appearing intramural hematoma of the descending thoracic aorta with likely chronic abdominal aortic dissection, partially imaged. 4. 3.5 cm partially calcified mass of the left lower lobe. Follow-up with pulmonology recommended. This may be amenable to bronchoscopic tissue sampling. Chest pain may be from hypertensive emergency. Ruled out ACS, dissection. Appeared to be chronic aortic dissection and hematoma on CT at this time. ER physician spoke to [facility], ICU and CT surgery who reportedly felt hematoma in the thoracic aorta and abdominal aortic dissection were chronic and felt no need for transfer at this time. Admitted to the ICU Was eventually weaned off the nicardipine drip Echo was repeated Cardiology consulted, recommended/stated the following: "73-year-old male with complex history noted above presented to the emergency department with chest discomfort. CTA of the chest with chronic findings noted. Echocardiogram demonstrating preserved LV systolic function, normal wall motion, and normal mechanical aortic valve function. ECG with sinus bradycardia. No ischemic changes. Initially blood pressure markedly elevated however currently within normal range after nicardipine infusion. Nicardipine has since been discontinued. Recommend resume home medications. First 2 sets of high-sensitivity troponin are within normal limits. Will repeat x 1 set. Continue observation overnight. Cardiology will follow." Held home benazepril, triamterene-hydrochlorothiazide, amlodipine while on the nicardipine drip Once weaned, benazapril was switched to enalapril, triamterene- hydrochlorothiazide was resumed with eventual addition of home amlodipine. INR: 3.0 on admission, 2.8 on d/c Continued warfarin On day of discharge Cardiology noted/stated the following: "CP resolved. HS troponin negative x3. Chest CT on admission demonstrated known/chronic aortic dissection without acute change per notes and radiology review. BP improved with nicardipine gtt. Now discontinued. resume home dose amlodipine 5 mg daily Patient will follow up with his Hopper [employer] and Textbook Associate in [place] upon returning home. Arrangements are being made to send records and images. " [facility] noted the following on the day of discharge: In/out: +303, urine output 2450 Monitor systolic blood pressure. INR today is 2.8 which is within the excepted range. Patient hemodynamically stable to be downgraded to medical floor Would recommend to follow-up with his customs director in [place] for the left lung mass as well as primary care doctor to address primary hyperparathyroidism No changes were made to the pt's home medications (benazapril 20mg, triamterene- hydrochlorothiazide and amlodipine and he was discharged in stable condition from the ICU with resolved chest pain and BP of 122/60 with HR 53 on day of discharge. pt was encouraged to follow up closely with his ceo & co founder at home in [place], he states he will be able to get in soon. Pulmonary Mass Pancreatic Lesion CT Abd/Pelvis: "A 6 mm hypodense lesion within the uncinate process of the pancreas. This favors a cystic neoplasm such as a side branch intraductal papillary mucinous neoplasm or serous cystadenoma. Will need outpatient repeat imaging to monitor for stability" CTA Chest: 3.5 cm partially calcified mass of the left lower lobe. Will require further follow up with pulmonology Acute Kidney Injury Cr 1.4 on amdission Improved to normal limits on discharge after IV fluids PCP followup Hypercalcemia Calcium 12.2 with albumin 4.6 on admission, calcium on discharge 9.8 PTH 107 IV fluids Hypercalcemia secondary to primary hyperparathyroidism Urinary retention Neurogenic bladder Self caths at home Payne cath in hospital UA unremarkable Follows with Dr Katiana Martines in [place], [place] for routine care Notes For Next Care Provider please ensure followup with pt's Textbook Associate and ceo & co founder in [place] Please followup on noted pancreatic lesion/mass Please followup on noted pulmonary mass Please follow up on calcium levels Medication Changes From Visit None Admission HPI Per Admitting Provider Patient is 73 year old male with PMH aortic dissection, mechanical aortic valve, anticoagulated on warfarin with goal INR: 2.5-3.5, HTN, chronic urinary r etention presented to ER with c/o chest pain. Patient reports lives in [place] and flew to [place] and is here visiting family. Patient states this morning took a large step up and felt "pop" like sensation to left chest. States currently having some left chest pain described as dull but pain is not as strong as when he first arrived to the ER. States when takes deep breath left lateral chest feels tight sensation which he states feels like a pulled muscle. He does report a similar "popping sensation" in his chest in past that occurred approximately 8 hours prior to his aortic dissection in 07/13/2013. He denies any SOB, diaphoresis, dizziness, syncope, chest pain. Did not take his medications this morning. Patient reports has been told he has bradycardia in past. States in past had dizziness that he thought was secondary to dehydration and he since has been making sure to stay well hydrated and has not had dizziness symptoms. Reports home BP checks have been BP: 121/71, P 51 on 01/24/24 and on 01/26/24 BP: 118/74, P: 81. Reports some chronic ankle swelling and uses compression socks. Stung by yellow jackets yesterday. He reports that his throat felt a little tight and he took 6 tabs of OTC Benadryl yesterday with relief. Reports chronic constipation and uses Metamucil with relief. Aortic dissection and aortic valve replacement by Dr Zachery Lerma at [facility] in [place], [place]. States during that hospitalization had some kidney concerns but he is unsure of baseline kidney functions. States also has chronic numbness right buttock and chronic urinary retention and self-caths multiple times daily. Denies fever/chills, diaphoresis, N/V/D, TROY, syncope, vision changes, neck pain, orthopnea, palpitations, cough, sore throat, rhinorrhea, abdominal pain, paresthesias, weakness, rashes, hematuria, dysuria. Today in ER noted to be hypertensive with BP 205/92 and pulse: 53. He was started on nicardipine drip Admission Exam Per Admitting Provider GENERAL APPEARANCE: AxOx4, generally well-appearing M, no acute distress. HEENT: NC, AT. MMM. EOMI, clear conjunctiva, oropharynx clear. NECK: Supple without lymphadenopathy. No stiffness or restricted ROM. HEART: VIRGIE+, mechanical click present LUNGS: CTAB, moving air well. No crackles or wheezes are heard. ABDOMEN: Soft, nontender, nondistended with good bowel sounds heard. BACK: No CVAT, no obvious deformity. EXTREMITIES: Without cyanosis, clubbing or edema. NEUROLOGICAL: Grossly nonfocal. Alert and oriented, moving all 4 extremities. CN not formally tested but appear grossly intact. Observed to ambulate with normal gait. Skin: Warm and dry without any rash. Discharge Exam General: Alert, oriented. No acute distress Skin: No noted rashes or bruises Psych: Appropriate mood and affect Neuro: No gross deficits HEENT: NC/AT, PERRLA, EOMI, oropharynx moist. Chest: Nontender to palpation. CV: RRR, Normal s1, s2. No murmurs appreciated Resp: Breath sounds clear bilaterally, no increased effort of breathing. No crackles/rhonchi/rales. Abdomen: BS+. Soft, nontender, nondistended. No guarding. No organomegaly appreciated. Extremities: No edema in lower extremities bilaterally. Updated Medication List Medication Instructions Recorded Confirmed Type amlodipine 5 mg tablet 5 mg PO QAM 02/06/24 02/06/24 History ascorbic acid (vitamin C) 500 mg 500 mg PO DAILY 02/06/24 02/06/24 History tablet (Vitamin C) aspirin 81 mg tablet,delayed 81 mg PO QPM 02/06/24 02/06/24 History release benazepril 20 mg tablet 20 mg PO QPM 02/06/24 02/06/24 History cholecalciferol (vitamin D3) 25 25 mcg PO DAILY 02/06/24 02/06/24 History mcg (1,000 unit) tablet (Vitamin D3) cyanocobalamin (vitamin B-12) 500 500 mcg PO QPM 02/06/24 02/06/24 History mcg tablet (Vitamin B-12) lysine 1,000 mg tablet 1,000 mg PO DAILY 02/06/24 02/06/24 History magnesium 250 mg tablet 125 mg PO QPM 02/06/24 02/06/24 History pantothenic acid (vit B5) 500 mg 500 mg PO QPM 02/06/24 02/06/24 History tablet triamterene 37.5 1 tab PO QAM 02/06/24 02/06/24 History mg-hydrochlorothiazide 25 mg tablet warfarin 5 mg tablet 2.5 mg PO BID 02/06/24 02/06/24 History Hospital Stay Data Consultations 02/06/24 12:02 ED Decision to Admit Stat 02/06/24 13:13 Consult Cardiology Routine 02/06/24 14:13 Consult [facility] Routine 02/07/24 13:33 Burn CD for patient Stat Diagnostic Imagining Performed 02/06/24 09:58 CT abd pelvis IV con only Stat 02/06/24 10:07 CT angio chest dissec wo/w con Stat Abdomen/Pelvis CT 02/06/24 09:[address] WITH IV CONTRAST CT DOSE: HISTORY: Generalized abdominal pain. History of an aortic dissection. TECHNIQUE: Multiaxial CT images of the abdomen and pelvis were performed following the use of intravenous contrast. A dose lowering technique was utilized adhering to the principles of ALARA. COMPARISON STUDY: None. FINDINGS: There is an age-indeterminate intramural hematoma within the distal descending thoracic aorta. There is also an age-indeterminate dissection within the abdominal aorta which extends into the bilateral common iliac arteries and right external iliac artery. Both the true and false lumens are opacified. No s ignificant stenosis or occlusion within the aorta or iliac arteries. The bilateral renal arteries and major mesenteric arteries appear patent. No retroperitoneal hematoma. The heart is mildly enlarged. The main portal vein is patent. The lung bases will be reported on the same day chest CTA. No pneumoperitoneum. No pneumatosis. No acute fractures. Partially visualized poststernotomy changes. There is a mild superior endplate compression fracture at L1. This is likely chronic. There are few small gallstones. No gallbladder wall thickening. The liver, spleen, and adrenal glands unremarkable. No hydronephrosis. There is a severely atrophic right kidney. There is a 6 mm hypodense lesion within the uncinate process of the pancreas on image 148. No retroperitoneal lymphadenopathy. No pelvic lymphadenopathy or pelvic free fluid. Mild bladder wall thickening is likely due to chronic outlet obstruction from the enlarged prostate gland. No bowel wall thickening or obstruction. Colonic diverticulosis. No evidence for acute diverticulitis. Moderate fecal retention. Normal appendix. IMPRESSION: 1. There is an intramural hematoma within the visualized ascending thoracic aorta and a dissection within the abdominal aorta and iliac arteries as described above. No significant stenosis, occlusion, or aortic rupture. These are technically age-indeterminate but likely chronic. 2. Severely atrophic right kidney. 3. No bowel wall thickening or obstruction. 4. Colonic diverticulosis. No evidence for acute diverticulitis. 5. Cholelithiasis. No gallbladder wall thickening. 6. A 6 mm hypodense lesion within the uncinate process of the pancreas. This favors a cystic neoplasm such as a side branch intraductal papillary mucinous neoplasm or serous cystadenoma. One year CT or MRI follow-up can be performed to ensure stability. 7. Additional findings as described above. ACT 112: Negative or not required by law. Electronically signed by: Eric Loja M.D. 02/06/2024 10:56 AM Chest X-Ray 02/06/24 09:58 XR chest 1V portable HISTORY: 73 years-old Male abd pain acute chest pain COMPARISON: None TECHNIQUE: AP view of the chest FINDINGS: Cardiac silhouette is enlarged. Median sternotomy with cardiac valvular prosthesis. Atherosclerosis of the aorta. Mild pulmonary vascular congestion. No pneumothorax, pleural effusion or airspace consolidation. The bones appear intact. IMPRESSION: Cardiomegaly with pulmonary vascular congestion. ACT 112: Negative or not required by law. The above report was generated using voice recognition software. It may contain grammatical, syntax or spelling errors. Electronically signed by: Ever Hobbs M.D. 02/06/2024 10:33 AM Chest CTA 02/06/24 10:07 CT angio chest dissec wo/w con HISTORY: 73 years-old Male hx of dissedtion, CP acute chest pain COMPARISON: CT abdomen and pelvis of same day TECHNIQUE: CTA chest was obtained with and without IV contrast. A dose lowering technique was used consistent with the principals of MARTIN. All measurements were obtained according to CT criteria. 3-D coronal and sagittal MIPS were obtained and submitted for review. FINDINGS: CTA: Cardiomegaly without pericardial effusion. Median sternotomy with prosthetic aortic valve. Extensive coronary artery calcifications. Postoperative changes of the ascending thoracic aorta with dilation of the anterior arch measuring up to 4.3 cm transversely. No acute intrathoracic dissection. Chronic- appearing intradural hematoma of the distal descending thoracic aorta. No pulmonary emboli identified. Partially imaged abdominal aortic dissection with dissection flap extending into the left renal artery. There is decreased flow within the posterior lumen. There is fenestration of the dissection flap on image [address] CHEST: Unremarkable thyroid. No lymphadenopathy. No pneumothorax, pleural effusion or overt pulmonary edema. Mild biapical pleural-parenchymal scarring. Mild left basilar atelectasis. Lobular 3.5 x 2.4 cm mass in the left lower lobe on image 111 series 7 demonstrates coarse central calcifications. No additional pulmonary lesions identified. Central airways are patent. No acute fracture. Atrophic right kidney with decreased perfusion and narrowing of the mid right renal artery. No acute fracture. IMPRESSION: 1. Cardiomegaly with prior median sternotomy, prosthetic aortic valve with postoperative changes of the ascending thoracic aorta. 2. No acute thoracic aortic dissection. 3. Chronic-appearing intramural hematoma of the descending thoracic aorta with likely chronic abdominal aortic dissection, partially imaged. 4. 3.5 cm partially calcified mass of the left lower lobe. Follow-up with pulmonology recommended. This may be amenable to bronchoscopic tissue sampling. ACT 112: Positive. There are findings on this exam that require communication between the performing entity and the patient following Patient Test Result Information Act ([place] Act 112) guidelines. The above report was generated using voice recognition software. It may contain grammatical, syntax or spelling errors. Electronically signed by: Ever Hobbs M.D. 02/06/2024 11:41 AM Pending Results Patient Have Any Pending Studies at Discharge: No Discharge Instructions Given to Patient (Per Discharging Provider) Mr. Humphrey, You are being discharged home. You blood pressure is currently controlled and we determined that there was no acute dissection occurring once more. You were seen by cardiology who recommended discharge home on your current home medications. Please keep close followup with your ceo & co founder after discharge. Please keep close followup with your customs director when you travel back home for the noted mass. Please keep close follow up with your primary care provider after discharge. Please do not hesitate to come back to the emergency room if your symptoms worsen or return. It was a pleasure taking care of you while you were here. Total Time Total Time Spent Total Time Spent (In Minutes): 65
--- NOTE | 2024-02-07 14:04 | Communication Note ---
Date of Service: February 07, 2024 By CMS guidelines, a determination that the admission or continued stay is not medically necessary has been made by a member of the UR committee and a phys ician for this hospital stay, therefore a Code 44 will be completed and the Inpatient admission will be changed to outpatient.
== END 2024-02-07 14:45 | disposition home or self-care (01) ==
LOC: ED 09:54 → 1E 13:02 → INTOOBSV 13:02 → SUATTDRO 13:02 → 1E 14:08